=== PATIENT | female | born 1990 | race Caucasian/White ===

== ENCOUNTER 2024-01-24 18:06 | Inpatient (IN) | payer OTHER, SELFPAY ==
[2024-01-24] VITALS (7 sets, daily range): BP systolic 115–128; BP diastolic 71–82; PULSE 61–83; RESP 16–18; TEMP 36.9; O2SAT 96–100; BMI 20.3
--- NOTE | 2024-01-24 21:20 | DI.RAD.S_ITS ---
PROCEDURE: XR CHEST 1V INDICATIONS: suspected sepsis TECHNIQUE: One view of the chest was acquired. COMPARISON: None. FINDINGS: Surgical changes and devices: None. Lungs and pleura: Lungs are clear. No pleural effusions or pneumothorax. Mediastinum: Mediastinal contours appear normal. Heart size is normal. Bones and chest wall: No suspicious bony lesions. Overlying soft tissues appear unremarkable. IMPRESSION: No acute cardiopulmonary abnormality is seen. Dictated by: Noe Hoang M.D. on 01/24/2024 at 23:45 Approved by: Noe Hoang M.D. on 01/24/2024 at 23:45
[2024-01-24] MEDS: SODIUM CHLORIDE 0.9% 1,000 ML 1000 ML IV ×3 (22:00→23:38)
[2024-01-24] MEDS: ACETAMINOPHEN IV 1,000 MG/100 ML VIAL 400 MG IV (22:01)
[2024-01-24] MEDS: ONDANSETRON 4 MG/2 ML INJ IV (22:01)
--- NOTE | 2024-01-24 22:17 | ED.HA ---
HPI - Headache General Chief Complaint: Headache Stated Complaint: Headache, neck px, body px, chills Time Seen by Provider: 01/24/24 21:53 Source: patient, RN notes reviewed and old records reviewed Mode of arrival: Ambulatory Limitations: no limitations History of Present Illness HPI Narrative: This is a 33-year-old female with no reported medical issues with report of 5 days of myalgias particularly back pain, headache. She reports chills. She states no objective fevers when using a thermometer but has felt warm. Patient states no cough cold or congestion symptoms. Denies chest pain or shortness of breath. She had some nausea and vomiting overnight. She had a couple episodes of vomiting on and off. She has had very little intake of food or liquid. She states she has had bowel movements she describes them as formed without any black or blood. States that she does have sensation in the chest and go right before happens. Denies any dysuria urgency or frequency. No vaginal discharge or bleeding. Denies flank pain states it is overall kind of back discomfort. Denies any rash or skin changes overall. States she does have some neck pain with her headache. She was able to do full range of motion. Denies any sore throat. Patient states no rashes, cuts or other changes. She has tried Tylenol and ibuprofen without much improvement. States yesterday she was sort of lost some time in does not recall throwing up. Denies any daily medications. Denies any major surgeries. No known drug allergies. No tobacco, no regular alcohol, no recreational drugs. She is accompanied by her sister. Related Data Allergies Allergy/AdvReac Type Severity Reaction Status Date / Time No Known Drug Allergies Allergy Verified 01/24/24 22:06 Review of Systems Review of Systems ROS Unobtainable: All systems reviewed & are unremarkable except as noted in HPI and below Patient History Social History Smoking Status: Never smoker Smoking Status: Never smoker alcohol intake frequency: holidays/special occasions only Substance Use Type: does not use Exam Narrative Exam Narrative: GEN: well nourished, well appearing female, alert and oriented x 3, patient appears to be in mild distress. HEENT: Atraumatic, pupils are equal round reactive to light, extraocular movements are intact, nares are clear, TMs are clear with no fluid, there is no conjunctival pallor. Throat is clear without any exudates, erythema, tonsillar enlargement or uvular deviation, full range of motion. No meningeal signs, no negative Kernig's and Brudzinski's. HEART: Regular rate and rhythm without murmur, clicks, rubs. pulses are equal in upper and lower extremities LUNGS:Lungs clear to auscultation, no wheezes, rales, crackles, chest moves symmetrically ABD:bowel sounds normal, soft, non-tender, no guarding, rebound, rigidity, no masses noted, no hepatosplenomegaly :No CVA tenderness MSCL: Non-tender, no muscle atrophy, muscles strength 5/5 upper and lower extremities, full range of motion, normal gait NEURO:CN 2-12 intact, sensation normal, reflexes 2/4 upper and lower extremities. SKIN: No rash, erythema, no blisters or vesicles. Patient does have some bruising on her anterior right garcia and left ankle. Initial Vital Signs Initial Vital Signs: Vital Signs Temperature 98.5 F 01/24/24 18:18 Pulse Rate 78 01/24/24 18:18 Respiratory Rate 16 01/24/24 18:18 Blood Pressure 128/77 01/24/24 18:18 Pulse Oximetry 100 01/24/24 18:18 Oxygen Delivery Method Room Air 01/24/24 18:18 Procedures Lumbar Puncture Time of procedure: 02:30 Time Out Performed: Yes Patient Position: upright Skin Prep: Povidone-Iodine 1% Local Anesthetic: lidocaine 2% Amount of anesthesia used (mL): 4 Spinal Needle Gauge: 22G Interspace Used: L3-L4 Fluid Initially Obtained: clear Complications: none Course Orders Ordered: ED Orders 01/24/24 21:20 XR chest 1V Stat RT Consult Eval and Treat NOW 01/24/24 21:25 Respiratory Panel (Film Array) Stat 01/24/24 22:45 Blood Culture Stat Complete Blood Count AUTO DIFF Stat Comprehensive Metabolic Panel Stat Lactate (Lactic Acid) Stat Lipase Stat PTT Partial Thromboplastin [place] Stat Procalcitonin Stat Prothrombin Time INR Stat 01/24/24 23:33 CT head/brain wo con Stat 01/25/24 Basic Metabolic Panel Routine Complete Blood Count AUTO DIFF Routine 01/25/24 02:40 Cell Count w Diff CSF Stat Glucose CSF Stat HOLD TUBE CSF Stat Meningitis Panel (Film Array) Stat Total Protein CSF Stat 01/25/24 03:00 CSF culture Stat 01/25/24 04:42 Education, smoking cessation ONGOING 01/25/24 05:00 Education, smoking cessation ONGOING Acetaminophen (Acetaminophen 325 Mg Tablet) 650 mg PO Q6H PRN PRN Reason: Fever/Mild Pain (1-3) Hydrocodone Bitart/Acetaminophen (Hydrocodone/Acet 5/325 Tablet) 1 tab PO Q4H PRN PRN Reason: Pain, Moderate (4-6) Sodium Chloride (Normal Saline 0.9%) 1,000 mls @ 150 mls/hr IV CONT BRIANDA Last Admin: 01/25/24 03:25 Dose: 150 mls/hr Documented By: GC Sodium Chloride (Normal Saline 0.9%) 1,000 mls @ 75 mls/hr IV CONT BRIANDA Ceftriaxone Sodium 2,000 mg/ (Sodium Chloride) 100 mls @ 200 mls/hr IV Q24H BRIANDA Naloxone HCl (Naloxone 0.4 Mg/Ml Vial) 0.2 mg IV Q2MIN PRN PRN Reason: Opiate Reversal Naloxone HCl (Naloxone 0.4 Mg/Ml Vial) 0.2 mg IV Q2MIN PRN PRN Reason: Opiate Reversal Ondansetron HCl (Ondansetron 4 Mg Odt) 4 mg SL NOW PRN PRN Reason: Nausea And Vomiting Ondansetron HCl (Ondansetron 4 Mg/2 Ml Inj) 4 mg IV Q8HR PRN PRN Reason: Nausea And Vomiting Vancomycin HCl (Vancomycin Per Pharmacy) 1 request MISC NOW PRN PRN Reason: possible menigitis Discontinued Medications Dexamethasone (Dexamethasone 10 Mg/Ml Vial) 10 mg IV NOW ONE Stop: 01/25/24 03:54 Last Admin: 01/25/24 04:55 Dose: 10 mg Documented By: AB Sodium Chloride (Normal Saline 0.9%) 1,000 mls @ 1,000 mls/hr IV BOLUS ONE Stop: 01/24/24 22:18 Last Infusion: 01/24/24 22:41 Dose: Infused Documented By: Admin: 01/24/24 22:00 Dose: 1,000 mls/hr Documented By: AB Acetaminophen (Ofirmev) 1,000 mg in 100 mls @ 400 mls/hr IV NOW ONE Stop: 01/24/24 21:35 Last Infusion: 01/24/24 22:30 Dose: Infused Documented By: Admin: 01/24/24 22:01 Dose: 400 mls/hr Documented By: Sodium Chloride (Normal Sal[place] 0.9%) 1,000 mls @ 1,000 mls/hr IV BOLUS ONE Stop: 01/24/24 23:26 Last Infusion: 01/24/24 23:35 Dose: Infused Documented By: Admin: 01/24/24 22:46 Dose: 1,000 mls/hr Documented By: Sodium Chloride (Normal Saline 0.9%) 1,000 mls @ 1,000 mls/hr IV BOLUS ONE Stop: 01/25/24 00:34 Last Infusion: 01/25/24 00:41 Dose: Infused Documented By: Admin: 01/24/24 23:38 Dose: 1,000 mls/hr Documented By: Acyclovir 520 mg/ Dextrose 250 mls @ 250 mls/hr IV NOW ONE Stop: 01/25/24 02:44 Last Infusion: 01/25/24 04:53 Dose: Infused Documented By: Admin: 01/25/24 03:47 Dose: 250 mls/hr Documented By: JARETH Ceftriaxone Sodium 2,000 mg/ (Sodium Chloride) 100 mls @ 200 mls/hr IV NOW ONE Stop: 01/25/24 03:54 Last Admin: 01/25/24 04:55 Dose: 200 mls/hr Documented By: Vancomycin HCl (Vancomycin) 1,000 mg in 200 mls @ 200 mls/hr IV NOW ONE Stop: 01/25/24 04:52 Ketorolac Tromethamine (Ketorolac 30 Mg/Ml Vial) 15 mg IV NOW ONE Stop: 01/24/24 22:35 Last Admin: 01/24/24 22:45 Dose: 15 mg Documented By: Metoclopramide HCl (Metoclopramide 10 Mg/2 Ml Inj) 10 mg IV NOW ONE Stop: 01/24/24 23:52 Last Admin: 01/25/24 00:07 Dose: 10 mg Documented By: Morphine Sulfate (Morphine 4 Mg/Ml Inj) 4 mg IV NOW ONE Stop: 01/25/24 02:46 Last Admin: 01/25/24 03:26 Dose: 4 mg Documented By: JARETH Ondansetron HCl (Ondansetron 4 Mg/2 Ml Inj) 4 mg IV NOW PRN PRN Reason: Nausea And Vomiting Last Admin: 01/25/24 03:29 Dose: 4 mg Documented By: Admin: 01/24/24 22:01 Dose: 4 mg Documented By: Ondansetron HCl (Ondansetron 4 Mg/2 Ml Inj) 4 mg IV NOW ONE Stop: 01/25/24 03:28 Vital Signs Vital signs: Vital Signs - 8 hr 01/24/24 21:48 01/24/24 21:48 01/24/24 22:00 Pulse Rate 67 65 Respiratory Rate Blood Pressure 121/82 Pulse Oximetry 100 100 Oxygen Delivery Method Room Air 01/24/24 22:00 01/24/24 22:30 01/24/24 23:00 Pulse Rate 71 72 Respiratory Rate Blood Pressure 118/71 Pulse Oximetry 98 Oxygen Delivery Method 01/24/24 23:30 01/25/24 00:03 01/25/24 00:15 Pulse Rate 61 69 73 Respiratory Rate 18 Blood Pressure Pulse Oximetry 99 99 96 Oxygen Delivery Method Room Air 01/25/24 00:15 01/25/24 00:30 01/25/24 00:30 Pulse Rate 64 Respiratory Rate 17 Blood Pressure 121/74 119/75 Pulse Oximetry 99 Oxygen Delivery Method Room Air 01/25/24 01:00 01/25/24 01:00 01/25/24 01:30 Pulse Rate 74 84 Respiratory Rate 36 H 5 L Blood Pressure 110/69 Pulse Oximetry 98 Oxygen Delivery Method 01/25/24 01:30 01/25/24 02:00 01/25/24 02:00 Pulse Rate 64 Respiratory Rate 19 Blood Pressure 118/76 121/75 Pulse Oximetry 97 Oxygen Delivery Method 01/25/24 02:30 01/25/24 02:30 01/25/24 03:00 Pulse Rate 74 70 Respiratory Rate 19 19 Blood Pressure 125/84 Pulse Oximetry 96 99 Oxygen Delivery Method 01/25/24 03:00 01/25/24 03:30 01/25/24 03:30 Pulse Rate 60 Respiratory Rate 14 Blood Pressure 119/67 113/63 Pulse Oximetry 96 Oxygen Delivery Method 01/25/24 04:00 Pulse Rate 84 Respiratory Rate 21 Blood Pressure Pulse Oximetry 97 Oxygen Delivery Method Room Air MDM - Headache Lab Data 01/24/24 22:45 01/24/24 22:45 Labs: Lab Results 01/24/24 01/24/24 01/25/24 Range/Units 21:25 22:45 02:40 WBC 8.0 (4.5-11.0) X10^3/uL RBC 4.26 (4.0-5.2) X10^6/uL Hgb 13.0 (12.0-16.0) g/dL Hct 37.8 (36-46) % MCV 88.7 (80-100) fL MCH 30.5 (26-34) PG MCHC 34.3 (30-36) % RDW 12.4 (11.6-14.8) % Plt Count 260 (150-400) X10^3/uL Neut % (Auto) 74.7 (50-75) % Lymph % (Auto) 14.3 L (25-40) % Teller % (Auto) 9.9 (3-14) % Eos % (Auto) 0.5 L (2-4) % Baso % (Auto) 0.6 (0-2) % Neut # (Auto) 6000 (1706-0885) /uL Lymph # (Auto) 1200 (9847-9115) /uL Teller # (Auto) 800 (0-900) /uL Eos # (Auto) 0 (0-450) /uL Baso # (Auto) 100 (0-100) /uL PT 13.0 H (9.4-12.5) SECONDS INR 1.1 (0.9-1.3) APTT 33 (25.1-36.5) SECONDS Sodium 137 (137-145) mmol/L Potassium 3.5 (3.4-5.1) mmol/L Chloride 106 (98-107) mmol/L Carbon Dioxide 21 L (22-32) mmol/L BUN 16 (7-17) mg/dL Creatinine 0.56 (0.52-1.04) mg/dL Estimated GFR > 60 (>60) mL/min BUN/Creatinine Ratio 28.6 H (6-22) Glucose 88 (70-100) mg/dL Lactate 1.2 (0.7-2.1) mmol/L Calcium 8.6 (8.4-10.2) mg/dL Total Bilirubin 0.8 (0.2-1.3) mg/dL AST 23 (14-36) IU/L ALT 17 (<35) IU/L Alkaline Phosphatase 58 (38-126) U/L Total Protein 7.0 (6.3-8.2) g/dL Albumin 4.2 (3.5-5.0) g/dL Globulin 2.8 (1.7-4.1) g/dL Albumin/Globulin Ratio 1.5 (1.0-2.8) Lipase 60 (23-300) U/L Procalcitonin 0.088 (<0.5) ng/mL CSF Tube Number 1 CSF Volume 3.0 ml CSF Appearance Clear (Clear) CSF Color Colorless (Colorless) CSF WBC 393 H (0-5) MONO/uL CSF RBC 269 RBC /uL CSF Mononuclear WBCs 100 % CSF Polynuclear WBCs 0 % CSF Glucose 40 (40-70) mg/dL CSF Total Protein 153 H (12-60) mg/dL CSF C.neoform/gat PCR Not detected (Not Detect) CSF CMV DNA (PCR) Not detected (Not Detect) CSF Enterovirus (PCR) Not detected (Not Detect) CSF E. coli (PCR) Not detected (Not Detect) CSF H. influenzae (PCR) Not detected (Not Detect) CSF HSV I (PCR) Not detected (Not Detect) CSF HSV II (PCR) Not detected (Not Detect) CSF HHV 6 (PCR) Not detected (Not Detect) CSF L.monocytogenes PCR Not detected (Not Detect) CSF N. meningitidis PCR Not detected (Not Detect) CSF Parechovirus (PCR) Not detected (Not Detect) CSF S. agalactiae (PCR) Not detected (Not Detect) CSF S. pneumoniae (PCR) Not detected (Not Detect) CSF VZV (PCR) Detected (Not Detecte) Chlamy pneumoniae PCR Not detected (Not Detect) Adenovirus (PCR) Not detected (Not Detect) B.parapertussis DNA PCR Not detected (Not Detecte) Coronavirus OC43 (PCR) Not detected (Not Detect) Coronavirus HKU1 (PCR) Not detected (Not Detect) Coronavirus 229E (PCR) Not detected (Not Detect) SARS-CoV-2 (PCR) Not detected (Not Detecte) Coronavirus NL63 (PCR) Not detected (Not Detect) Human Metapneumovir PCR Not detected (Not Detect) Influenza Type A (PCR) Not detected (Not Detect) Influenza Type B (PCR) Not detected (Not Detect) M. pneumoniae (PCR) Not detected (Not Detect) Parainfluenza 1 (PCR) Not detected (Not Detect) Parainfluenza 2 (PCR) Not detected (Not Detect) Parainfluenza 3 (PCR) Not detected (Not Detect) Parainfluenza 4 (PCR) Not detected (Not Detect) RSV (PCR) Not detected (Not Detect) Entero/Rhino (PCR) Not detected (Not Detect) Point of Care Testing Test Results Negative Urine Dip Bedside Urine Glucose Negative Bedside Urine Bilirubin - Negative Bedside Urine Ketone +++ 80 Urine Specific [place] 1.025 Bedside Urine Occult Blood - Negative Bedside Urine pH 6.0 Bedside Urine Protein - Negative Bedside Urine Urobilinogen - Negative Bedside Urine Nitrite - Negative Bedside Urine Leukocytes - Negative Esterase Imaging Data CT scan - head: Radiologist's Impression: Love Escalante??33??F??1990 ? Allergy/Adv: No Known Drug Allergies (More??) Close Head CT (Signed) Call,Noe - 01/24/24 Chest X-Ray (Signed) Call,01/24/24 [place] [address] CT Scan Report Signed Patient: Love Escalante MR#: [id number] : 1990 Acct:[id number] Age/Sex: 33 / F Date of Service: 01/24/24 Loc: ED Accession Number: [id number] Procedure: CT head/brain wo con Ordering Provider: Joann Lim D.O. PROCEDURE: CT HEAD/BRAIN WO CON INDICATIONS: chills, perry x 5 days, vomiting, confused yesterday. TECHNIQUE: Noncontrast 4.5 mm thick angled axial sections acquired from the foramen magnum to the vertex, with coronal and sagittal reformats. For radiation dose reduction, the following was used: automated exposure control, adjustment of mA and/or kV according to patient size. COMPARISON: None. FINDINGS: Image quality: Diagnostic. CSF spaces: Basal cisterns are patent. No extra-axial fluid collections. Ventricles are normal in size and shape. Brain: No midline shift. No intracranial masses or hemorrhage. Lemons-white matter interface is normal. Skull and face: Calvarium and visualized facial bones are intact, without suspicious lesions. Sinuses: Visualized sinuses and mastoids are clear. IMPRESSION: No acute intracranial pathology. Dictated by: Noe Hoang M.D. on 01/25/2024 at 0:53 Approved by: Noe Hoang M.D. on 01/25/2024 at 0:55 MDM Narrative Medical decision making narrative: 33-year-old female complaint of headache and neck pain generalized body aches. Patient is afebrile overall appropriate vital signs here. No clear viral upper respiratory symptoms. Has not some nausea and vomiting. No chest pain no shortness of breath no belly pain. Patient's exam is overall reassuring but she does note a little bit of loss of time in the last 24 hours and did not recall throwing up. Patient was difficult IV stick. Received fluids see if this would make this a little bit easier. I think there is a component of dehydration for the patient. Head CT is negative Chest x-ray is negative Respiratory panel is negative Labs show white count 8 hemoglobin of 13 platelets of 260. INR is 1 point CO2 is 21 electrolytes are otherwise appropriate creatinine 0.56, lactate 1.2 glucose is 88, LFTs are negative. Procalcitonin is negative at 0.088. Discussed possibility of meningitis and lumbar puncture, suspect potentially more viral over bacterial although her exam is overall reassuring she has had 5 days of symptoms, patient does not have any meningeal signs on exam but does note that she had loss of some time in the last 24 hours and does not recall vomiting. Discussed risks versus benefits with patient. Patient received Tylenol, Toradol and fluids. Notes improvement of her headache although not resolution. Patient's vitals overall continued to be appropriate. Patient appears uncomfortable on rechecked. States medication seemed to be wearing off. Patient gave verbal and written consent for lumbar puncture. Lumbar puncture was successful. Patient had clear fluid. Did not obtain pressure but had steady but slow drainage of CSF fluid. Acyclovir was started. Patient had quite a few white cells on CSF so was also started on Rocephin vanco and dexamethasone. Spoke with Dr. Herrera, telehospitalist who accepts for admission. Discharge Plan Departure Patient Disposition: Admitted As Inpatient Clinical Impression: Meningitis
[2024-01-24] MEDS: KETOROLAC 30 MG/ML VIAL 15 MG IV (22:45)
[2024-01-24 22:52] LABS: Adenovirus Not Detected (Not Detect); B. parapertussis Not Detected (Not Detecte); Bordetella pertussis Not Detected (Not Detect); Chlamydophila pneumoniae Not Detected (Not Detect); Coronavirus 229E Not Detected (Not Detect); Coronavirus HKU1 Not Detected (Not Detect); Coronavirus NL 63 Not Detected (Not Detect); Coronavirus OC43 Not Detected (Not Detect); Human Metapneumovirus Not Detected (Not Detect); Human Rhinovirus/Enterovirus Not Detected (Not Detect); Influenza A Not Detected (Not Detect); Influenza B Not Detected (Not Detect); Mycoplasma pneumoniae Not Detected (Not Detect); Parainfluenza Virus 1 Not Detected (Not Detect); Parainfluenza Virus 2 Not Detected (Not Detect); Parainfluenza Virus 3 Not Detected (Not Detect); Parainfluenza Virus 4 Not Detected (Not Detect); Respiratory Syncytial Virus Not Detected (Not Detect); SARS- CoV-2 Not Detected (Not Detecte)
[2024-01-24 23:02] LABS: Add Manual Diff / Slide Review NO; Basophils Absolute Auto 100 /uL (0-100); Basophils Percent Auto 0.6 % (0-2); Eosinophils Absolute Auto 0 /uL (0-450); Eosinophils Percent Auto 0.5 % (2-4); Hematocrit 37.8 % (36-46); Lymphocytes Absolute Auto 1200 /uL (1100-4500); Lymphocytes Percent Auto 14.3 % (25-40); Mean Corpuscular HGB Conc 34.3 % (30-36); Mean Corpuscular Hemoglobin 30.5 PG (26-34); Mean Corpuscular Volume 88.7 fL (80-100); Monocytes Absolute Auto 800 /uL (0-900); Monocytes Percent Auto 9.9 % (3-14); Neutrophils Absolute Auto 6000 /uL (1500-7000); Neutrophils Percent Auto 74.7 % (50-75); Platelet Count 260 X10^3/uL (150-400); Red Blood Cell Count 4.26 X10^6/uL (4.0-5.2); Red Cell Distribution Width 12.4 % (11.6-14.8)
[2024-01-24 23:10] LABS: INR 1.1 (0.9-1.3)
[2024-01-24 23:13] LABS: PTT Partial Thromboplastin Tim 33 SECONDS (25.1-36.5)
[2024-01-24 23:14] LABS: Lactate (Lactic Acid) 1.2 mmol/L (0.7-2.1)
[2024-01-24 23:15] LABS: Alanine Aminotransferase 17 IU/L (<35); Albumin 4.2 g/dL (3.5-5.0); Albumin Globulin Ratio 1.5 (1.0-2.8); Alkaline Phosphatase 58 U/L (38-126); Aspartate Aminotransferase 23 IU/L (14-36); BUN Creatinine Ratio 28.6 (6-22); Bilirubin Total 0.8 mg/dL (0.2-1.3); Blood Urea Nitrogen 16 mg/dL (7-17); Calcium 8.6 mg/dL (8.4-10.2); Carbon Dioxide 21 mmol/L (22-32); Chloride 106 mmol/L (98-107); Estimated Glomerular Filt Rate > 60 mL/min (>60); Globulin 2.8 g/dL (1.7-4.1); Glucose 88 mg/dL (70-100); HEMOLYSIS < 15 (0-50); Lipase 60 U/L (23-300); Potassium 3.5 mmol/L (3.4-5.1); Sodium 137 mmol/L (137-145)
[2024-01-24 23:32] LABS: Procalcitonin 0.088 ng/mL (<0.5)
--- NOTE | 2024-01-24 23:33 | DI.CT.S_ITS ---
PROCEDURE: CT HEAD/BRAIN WO CON INDICATIONS: chills, perry x 5 days, vomiting, confused yesterday. TECHNIQUE: Noncontrast 4.5 mm thick angled axial sections acquired from the foramen magnum to the vertex, with coronal and sagittal reformats. For radiation dose reduction, the following was used: automated exposure control, adjustment of mA and/or kV according to patient size. COMPARISON: None. FINDINGS: Image quality: Diagnostic. CSF spaces: Basal cisterns are patent. No extra-axial fluid collections. Ventricles are normal in size and shape. Brain: No midline shift. No intracranial masses or hemorrhage. Lemons-white matter interface is normal. Skull and face: Calvarium and visualized facial bones are intact, without suspicious lesions. Sinuses: Visualized sinuses and mastoids are clear. IMPRESSION: No acute intracranial pathology. Dictated by: Noe Hoang M.D. on 01/25/2024 at 0:53 Approved by: Noe Hoang M.D. on 01/25/2024 at 0:55
[2024-01-25] VITALS (16 sets, daily range): BP systolic 102–125; BP diastolic 63–84; PULSE 56–84; RESP 5–36; TEMP 37.2; O2SAT 96–100; BMI 22.3
[2024-01-25] MEDS: METOCLOPRAMIDE 10 MG/2 ML INJ IV (00:07)
--- NOTE | 2024-01-25 01:08 | PC.NURSE ---
Pt appears to be resting comfortably. Chest rising and falling.
[2024-01-25] MEDS: SODIUM CHLORIDE 0.9% 1,000 ML 150 ML IV (03:25)
[2024-01-25] MEDS: MORPHINE 4 MG/ML INJ IV (03:26)
[2024-01-25] MEDS: ONDANSETRON 4 MG/2 ML INJ IV ×2 (03:29→16:25)
[2024-01-25 03:34] LABS: Appearance CSF Clear (Clear); CSF Tube Number 1; CSF Tube Volume 3.0 mL; Color CSF Colorless (Colorless)
[2024-01-25 03:35] LABS: HOLD TUBE CSF 4; Red Blood Cell CSF 269 RBC /uL; White Blood Cell CSF 393 MONO/uL (0-5)
[2024-01-25] MEDS: DEXTROSE 5% IV ×3 (03:47→15:22)
[2024-01-25] MEDS: WATER IV ×3 (03:47→15:22)
[2024-01-25] MEDS: ACYCLOVIR IV ×3 (03:47→15:22)
[2024-01-25 03:56] LABS: Glucose CSF 40 mg/dL (40-70); Total Protein CSF 153 mg/dL (12-60)
[2024-01-25 04:15] LABS: Cryptococcus neoformans/gattii Not Detected (Not Detect); Enterovirus Not Detected (Not Detect); Escherichia coli K1 Not Detected (Not Detect); Haemophilus influenzae Not Detected (Not Detect); Herpes simplex virus 1 Not Detected (Not Detect); Herpes simplex virus 2 Not Detected (Not Detect); Human herpesvirus 6 Not Detected (Not Detect); Human parechovirus Not Detected (Not Detect); Listeria monocytogenes Not Detected (Not Detect); Neisseria meningitidis Not Detected (Not Detect); Streptococcus agalactiae Not Detected (Not Detect); Streptococcus pneumoniae Not Detected (Not Detect); Varicella Zoster Virus Detected (Not Detecte)
[2024-01-25 04:37] LABS: Mononuclear WBC CSF 100 %; Polynuclear WBC CSF 0 %
[2024-01-25] MEDS: cefTRIAXone 2,000 MG in SODIUM CHLORIDE 0.9% 100 ML 200 MG IV ×2 (04:55→17:00)
[2024-01-25] MEDS: DEXAMETHASONE 10 MG/ML VIAL IV (04:55)
--- NOTE | 2024-01-25 05:08 | ED_ITS ---
HPI - Headache General Chief Complaint: Headache Stated Complaint: Headache, neck px, body px, chills Time Seen by Provider: 01/24/24 21:53 Mode of arrival: Ambulatory Limitations: no limitations History of Present Illness HPI Narrative: 33 year old female with no reported past medical history presents with generalized body aches and headache. Per the patient's report, over the past 5 days, the patient started to have generalized bodyaches accompanied by a moderate to severe headache. The patient started to have subjective fever and chills yesterday along with some nausea and vomiting. The patient denies any focal weakness or vision changes. The patient also denies any chest pain, shortness of breath, diarrhea or syncope. The patient tried to take some tylenol and ibuprofen at home whithout much imrpovement. In our ER, the patient was hemodyniacamlly stable without sign of sepsis. However due to ongoing headeache, our ER physician was concern for meningitis. Lumbar puncture was done and CSF fluid shows increased WBC and protein. Patient was given IVF, IV Vancomycin, IV Ceftriaxone and IV acyclovir. CSF fluid also sent for cultures. Related Data Allergies Allergy/AdvReac Type Severity Reaction Status Date / Time No Known Drug Allergies Allergy Verified 01/24/24 22:06 Review of Systems Review of Systems Narrative: 12 points of ROS are negative except for what was mentioned per HPI. Patient History Social History Smoking Status: Never smoker Smoking Status: Never smoker alcohol intake frequency: holidays/special occasions only Substance Use Type: does not use Exam Narrative Exam Narrative: GENERAL: The patient is not in any acute distressed. Awake and alert. HEENT: Nonicteric sclerae, PERRLA, EOMI. Oropharynx clear. Moist mucous membranes. Conjunctivae appear well perfused. HEART: Regular rate and rhythm without murmurs. No lower extremities edema. LUNGS: Clear to auscultation bilaterally. No wheezing, crackles or rhonchi ABDOMEN: Soft, positive bowel sounds, nontender. SKIN: No rash, no excessive bruising, petechiae, or purpura. NEUROLOGIC: AxO x 3. Cranial nerves II-XII intact without motor/sensory deficit. Initial Vital Signs Initial Vital Signs: Vital Signs Temperature 98.5 F 01/24/24 18:18 Pulse Rate 78 01/24/24 18:18 Respiratory Rate 16 01/24/24 18:18 Blood Pressure 128/77 01/24/24 18:18 Pulse Oximetry 100 01/24/24 18:18 Oxygen Delivery Method Room Air 01/24/24 18:18 Course Orders Ordered: ED Orders 01/24/24 21:20 XR chest 1V Stat RT Consult Eval and Treat NOW 01/24/24 21:25 Respiratory Panel (Film Array) Stat 01/24/24 22:45 Blood Culture Stat Complete Blood Count AUTO DIFF Stat Comprehensive Metabolic Panel Stat Lactate (Lactic Acid) Stat Lipase Stat PTT Partial Thromboplastin [place] Stat Procalcitonin Stat Prothrombin Time INR Stat 01/24/24 23:33 CT head/brain wo con Stat 01/25/24 Basic Metabolic Panel Routine Complete Blood Count AUTO DIFF Routine 01/25/24 02:40 Cell Count w Diff CSF Stat Glucose CSF Stat HOLD TUBE CSF Stat Meningitis Panel (Film Array) Stat Total Protein CSF Stat 01/25/24 03:00 CSF culture Stat 01/25/24 04:42 Education, smoking cessation ONGOING 01/25/24 05:00 Education, smoking cessation ONGOING Acetaminophen (Acetaminophen 325 Mg Tablet) 650 mg PO Q6H PRN PRN Reason: Fever/Mild Pain (1-3) Hydrocodone Bitart/Acetaminophen (Hydrocodone/Acet 5/325 Tablet) 1 tab PO Q4H PRN PRN Reason: Pain, Moderate (4-6) Sodium Chloride (Normal Saline 0.9%) 1,000 mls @ 150 mls/hr IV CONT BRIANDA Last Admin: 01/25/24 03:25 Dose: 150 mls/hr Documented By: GC Sodium Chloride (Normal Saline 0.9%) 1,000 mls @ 75 mls/hr IV CONT BRIANDA Ceftriaxone Sodium 2,000 mg/ (Sodium Chloride) 100 mls @ 200 mls/hr IV Q24H [facility] Naloxone HCl (Naloxone 0.4 Mg/Ml Vial) 0.2 mg IV Q2MIN PRN PRN Reason: Opiate Reversal Naloxone HCl (Naloxone 0.4 Mg/Ml Vial) 0.2 mg IV Q2MIN PRN PRN Reason: Opiate Reversal Ondansetron HCl (Ondansetron 4 Mg Odt) 4 mg SL NOW PRN PRN Reason: Nausea And Vomiting Ondansetron HCl (Ondansetron 4 Mg/2 Ml Inj) 4 mg IV Q8HR PRN PRN Reason: Nausea And Vomiting Vancomycin HCl (Vancomycin Per Pharmacy) 1 request MISC NOW PRN PRN Reason: possible menigitis Discontinued Medications Dexamethasone (Dexamethasone 10 Mg/Ml Vial) 10 mg IV NOW ONE Stop: 01/25/24 03:54 Last Admin: 01/25/24 04:55 Dose: 10 mg Documented By: Sodium Chloride (Normal Saline 0.9%) 1,000 mls @ 1,000 mls/hr IV BOLUS ONE Stop: 01/24/24 22:18 Last Infusion: 01/24/24 22:41 Dose: Infused Documented By: Admin: 01/24/24 22:00 Dose: 1,000 mls/hr Documented By: AB Acetaminophen (Ofirmev) 1,000 mg in 100 mls @ 400 mls/hr IV NOW ONE Stop: 01/24/24 21:35 Last Infusion: 01/24/24 22:30 Dose: Infused Documented By: Admin: 01/24/24 22:01 Dose: 400 mls/hr Documented By: Sodium Chloride (Normal Saline 0.9%) 1,000 mls @ 1,000 mls/hr IV BOLUS ONE Stop: 01/24/24 23:26 Last Infusion: 01/24/24 23:35 Dose: Infused Documented By: Admin: 01/24/24 22:46 Dose: 1,000 mls/hr Documented By: Sodium Chloride (Normal Saline 0.9%) 1,000 mls @ 1,000 mls/hr IV BOLUS ONE Stop: 01/25/24 00:34 Last Infusion: 01/25/24 00:41 Dose: Infused Documented By: Admin: 01/24/24 23:38 Dose: 1,000 mls/hr Documented By: AB Acyclovir 520 mg/ Dextrose 250 mls @ 250 mls/hr IV NOW ONE Stop: 01/25/24 02:44 Last Infusion: 01/25/24 04:53 Dose: Infused Documented By: Admin: 01/25/24 03:47 Dose: 250 mls/hr Documented By: JARETH Ceftriaxone Sodium 2,000 mg/ (Sodium Chloride) 100 mls @ 200 mls/hr IV NOW ONE Stop: 01/25/24 03:54 Last Admin: 01/25/24 04:55 Dose: 200 mls/hr Documented By: Vancomycin HCl (Vancomycin) 1,000 mg in 200 mls @ 200 mls/hr IV NOW ONE Stop: 01/25/24 04:52 Ketorolac Tromethamine (Ketorolac 30 Mg/Ml Vial) 15 mg IV NOW ONE Stop: 01/24/24 22:35 Last Admin: 01/24/24 22:45 Dose: 15 mg Documented By: Metoclopramide HCl (Metoclopramide 10 Mg/2 Ml Inj) 10 mg IV NOW ONE Stop: 01/24/24 23:52 Last Admin: 01/25/24 00:07 Dose: 10 mg Documented By: Morphine Sulfate (Morphine 4 Mg/Ml Inj) 4 mg IV NOW ONE Stop: 01/25/24 02:46 Last Admin: 01/25/24 03:26 Dose: 4 mg Documented By: JARETH Ondansetron HCl (Ondansetron 4 Mg/2 Ml Inj) 4 mg IV NOW PRN PRN Reason: Nausea And Vomiting Last Admin: 01/25/24 03:29 Dose: 4 mg Documented By: Admin: 01/24/24 22:01 Dose: 4 mg Documented By: Ondansetron HCl (Ondansetron 4 Mg/2 Ml Inj) 4 mg IV NOW ONE Stop: 01/25/24 03:28 Vital Signs Vital signs: Vital Signs - 8 hr 01/24/24 21:48 01/24/24 21:48 01/24/24 22:00 Pulse Rate 67 65 Respiratory Rate Blood Pressure 121/82 Pulse Oximetry 100 100 Oxygen Delivery Method Room Air 01/24/24 22:00 01/24/24 22:30 01/24/24 23:00 Pulse Rate 71 72 Respiratory Rate Blood Pressure 118/71 Pulse Oximetry 98 Oxygen Delivery Method 01/24/24 23:30 01/25/24 00:03 01/25/24 00:15 Pulse Rate 61 69 73 Respiratory Rate 18 Blood Pressure Pulse Oximetry 99 99 96 Oxygen Delivery Method Room Air 01/25/24 00:15 01/25/24 00:30 01/25/24 00:30 Pulse Rate 64 Respiratory Rate 17 Blood Pressure 121/74 119/75 Pulse Oximetry 99 Oxygen Delivery Method Room Air 01/25/24 01:00 01/25/24 01:00 01/25/24 01:30 Pulse Rate 74 84 Respiratory Rate 36 H 5 L Blood Pressure 110/69 Pulse Oximetry 98 Oxygen Delivery Method 01/25/24 01:30 01/25/24 02:00 01/25/24 02:00 Pulse Rate 64 Respiratory Rate 19 Blood Pressure 118/76 121/75 Pulse Oximetry 97 Oxygen Delivery Method 01/25/24 02:30 01/25/24 02:30 01/25/24 03:00 Pulse Rate 74 70 Respiratory Rate 19 19 Blood Pressure 125/84 Pulse Oximetry 96 99 Oxygen Delivery Method 01/25/24 03:00 01/25/24 03:30 01/25/24 03:30 Pulse Rate 60 Respiratory Rate 14 Blood Pressure 119/67 113/63 Pulse Oximetry 96 Oxygen Delivery Method 01/25/24 04:00 Pulse Rate 84 Respiratory Rate 21 Blood Pressure Pulse Oximetry 97 Oxygen Delivery Method Room Air MDM - Headache Lab Data 01/24/24 22:45 01/24/24 22:45 Labs: Lab Results 01/24/24 01/24/24 01/25/24 Range/Units 21:25 22:45 02:40 WBC 8.0 (4.5-11.0) X10^3/uL RBC 4.26 (4.0-5.2) X10^6/uL Hgb 13.0 (12.0-16.0) g/dL Hct 37.8 (36-46) % MCV 88.7 (80-100) fL MCH 30.5 (26-34) PG MCHC 34.3 (30-36) % RDW 12.4 (11.6-14.8) % Plt Count 260 (150-400) X10^3/uL Neut % (Auto) 74.7 (50-75) % Lymph % (Auto) 14.3 L (25-40) % [place] % (Auto) 9.9 (3-14) % Eos % (Auto) 0.5 L (2-4) % Baso % (Auto) 0.6 (0-2) % Neut # (Auto) 6000 (4845-9201) /uL Lymph # (Auto) 1200 (9557-3369) /uL [place] # (Auto) 800 (0-900) /uL Eos # (Auto) 0 (0-450) /uL Baso # (Auto) 100 (0-100) /uL PT 13.0 H (9.4-12.5) SECONDS INR 1.1 (0.9-1.3) APTT 33 (25.1-36.5) SECONDS Sodium 137 (137-145) mmol/L Potassium 3.5 (3.4-5.1) mmol/L Chloride 106 (98-107) mmol/L Carbon Dioxide 21 L (22-32) mmol/L BUN 16 (7-17) mg/dL Creatinine 0.56 (0.52-1.04) mg/dL Estimated GFR > 60 (>60) mL/min BUN/Creatinine Ratio 28.6 H (6-22) Glucose 88 (70-100) mg/dL Lactate 1.2 (0.7-2.1) mmol/L Calcium 8.6 (8.4-10.2) mg/dL Total Bilirubin 0.8 (0.2-1.3) mg/dL AST 23 (14-36) IU/L ALT 17 (<35) IU/L Alkaline Phosphatase 58 (38-126) U/L Total Protein 7.0 (6.3-8.2) g/dL Albumin 4.2 (3.5-5.0) g/dL Globulin 2.8 (1.7-4.1) g/dL Albumin/Globulin Ratio 1.5 (1.0-2.8) Lipase 60 (23-300) U/L Procalcitonin 0.088 (<0.5) ng/mL CSF Tube Number 1 CSF Volume 3.0 ml CSF Appearance Clear (Clear) CSF Color Colorless (Colorless) CSF WBC 393 H (0-5) MONO/uL CSF RBC 269 RBC /uL CSF Mononuclear WBCs 100 % CSF Polynuclear WBCs 0 % CSF Glucose 40 (40-70) mg/dL CSF Total Protein 153 H (12-60) mg/dL CSF C.neoform/gat PCR Not detected (Not Detect) CSF CMV DNA (PCR) Not detected (Not Detect) CSF Enterovirus (PCR) Not detected (Not Detect) CSF E. coli (PCR) Not detected (Not Detect) CSF H. influenzae (PCR) Not detected (Not Detect) CSF HSV I (PCR) Not detected (Not Detect) CSF HSV II (PCR) Not detected (Not Detect) CSF HHV 6 (PCR) Not detected (Not Detect) CSF L.monocytogenes PCR Not detected (Not Detect) CSF N. meningitidis PCR Not detected (Not Detect) CSF Parechovirus (PCR) Not detected (Not Detect) CSF S. agalactiae (PCR) Not detected (Not Detect) CSF S. pneumoniae (PCR) Not detected (Not Detect) CSF VZV (PCR) Detected (Not Detecte) Chlamy pneumoniae PCR Not detected (Not Detect) Adenovirus (PCR) Not detected (Not Detect) B.parapertussis DNA PCR Not detected (Not Detecte) Coronavirus OC43 (PCR) Not detected (Not Detect) Coronavirus HKU1 (PCR) Not detected (Not Detect) Coronavirus 229E (PCR) Not detected (Not Detect) SARS-CoV-2 (PCR) Not detected (Not Detecte) Coronavirus NL63 (PCR) Not detected (Not Detect) Human Metapneumovir PCR Not detected (Not Detect) Influenza Type A (PCR) Not detected (Not Detect) Influenza Type B (PCR) Not detected (Not Detect) M. pneumoniae (PCR) Not detected (Not Detect) Parainfluenza 1 (PCR) Not detected (Not Detect) Parainfluenza 2 (PCR) Not detected (Not Detect) Parainfluenza 3 (PCR) Not detected (Not Detect) Parainfluenza 4 (PCR) Not detected (Not Detect) RSV (PCR) Not detected (Not Detect) Entero/Rhino (PCR) Not detected (Not Detect) Point of Care Testing Test Results Negative Urine Dip Bedside Urine Glucose Negative Bedside Urine Bilirubin - Negative Bedside Urine Ketone +++ 80 Urine Specific [place] 1.025 Bedside Urine Occult Blood - Negative Bedside Urine pH 6.0 Bedside Urine Protein - Negative Bedside Urine Urobilinogen - Negative Bedside Urine Nitrite - Negative Bedside Urine Leukocytes - Negative Esterase Discharge Plan Departure Patient Disposition: Admitted As Inpatient Clinical Impression: Meningitis
[2024-01-25] MEDS: HYDROCODONE/ACET 5/325 TABLET 1 TAB PO ×4 (05:11→22:11)
--- NOTE | 2024-01-25 05:39 | PM.HP.1 ---
History of Present Illness History of Present Illness Chief complaint: Headache, neck px, body px, chills Narrative: 33 year old female with no reported past medical history presents with complaints of generalized body aches and headache. Per the patient's report, over the past 5 days, the patient started to have increasing generalized bodyaches and a moderate to severe headache. Yesterday, the patient also developed subjective fever and chills as well as nausea and vomiting. The patient was unable to hold much down orally due to the nausea and vomiting. The patient otherwise denies any focal weakness or vision changes. The patient also denies any chest pain, coughing, shortness of breath, diarrhea or syncope. In our ER, the patient was hypodermically stable and without sign of sepsis. Due to ongoing headache with negative CT head, our ER physician did do a lumbar puncture and CSF fluid shows elevated WBC as well as protein. Empiric IV Acyclovir, Vancomycin and Ceftriaxone given along with IVF. CSF fluid was also sent for cutltures. [facility] Social History Smoking Status: Never smoker Meds Home Medications and Allergies Allergies Allergy/AdvReac Type Severity Reaction Status Date / Time No Known Drug Allergies Allergy Verified 01/24/24 22:06 Review of Systems Review of Systems Narrative: 12 points of ROS are negative except for what was mentioned per HPI. Exam Vital Signs (past 8 hours): - 01/24/24 21:48 01/24/24 21:48 01/24/24 22:00 Pulse Rate 67 65 Respiratory Rate Blood Pressure 121/82 Pulse Oximetry 100 100 Oxygen Delivery Method Room Air 01/24/24 22:00 01/24/24 22:30 01/24/24 23:00 Pulse Rate 71 72 Respiratory Rate Blood Pressure 118/71 Pulse Oximetry 98 Oxygen Delivery Method 01/24/24 23:30 01/25/24 00:03 01/25/24 00:15 Pulse Rate 61 69 73 Respiratory Rate 18 Blood Pressure Pulse Oximetry 99 99 96 Oxygen Delivery Method Room Air 01/25/24 00:15 01/25/24 00:30 01/25/24 00:30 Pulse Rate 64 Respiratory Rate 17 Blood Pressure 121/74 119/75 Pulse Oximetry 99 Oxygen Delivery Method Room Air 01/25/24 01:00 01/25/24 01:00 01/25/24 01:30 Pulse Rate 74 84 Respiratory Rate 36 H 5 L Blood Pressure 110/69 Pulse Oximetry 98 Oxygen Delivery Method 01/25/24 01:30 01/25/24 02:00 01/25/24 02:00 Pulse Rate 64 Respiratory Rate 19 Blood Pressure 118/76 121/75 Pulse Oximetry 97 Oxygen Delivery Method 01/25/24 02:30 01/25/24 02:30 01/25/24 03:00 Pulse Rate 74 70 Respiratory Rate 19 19 Blood Pressure 125/84 Pulse Oximetry 96 99 Oxygen Delivery Method 01/25/24 03:00 01/25/24 03:30 01/25/24 03:30 Pulse Rate 60 Respiratory Rate 14 Blood Pressure 119/67 113/63 Pulse Oximetry 96 Oxygen Delivery Method 01/25/24 04:00 01/25/24 04:00 01/25/24 04:30 Pulse Rate 84 73 Respiratory Rate 21 18 Blood Pressure 113/64 Pulse Oximetry 97 100 Oxygen Delivery Method Room Air 01/25/24 04:30 01/25/24 05:00 01/25/24 05:00 Pulse Rate 73 Respiratory Rate 19 Blood Pressure 115/71 114/71 Pulse Oximetry 99 Oxygen Delivery Method Room Air Oxygen Delivery Method Room Air Narrative Exam Narrative: GENERAL: The patient is not in any acute distressed. Awake and alert. HEENT: Nonicteric sclerae, PERRLA, EOMI. Oropharynx clear. Moist mucous membranes. Conjunctivae appear well perfused. HEART: Regular rate and rhythm without murmurs. No lower extremities edema. LUNGS: Clear to auscultation bilaterally. No wheezing, crackles or rhonchi ABDOMEN: Soft, positive bowel sounds, nontender. SKIN: No rash, no excessive bruising, petechiae, or purpura. NEUROLOGIC: AxO x 3. Cranial nerves II-XII intact without motor/sensory deficit. Objective Labs 01/24/24 22:45 01/24/24 22:45 Labs: Laboratory Results - last 24 hr 01/24/24 01/24/24 01/25/24 21:25 22:45 02:40 WBC 8.0 RBC 4.26 Hgb 13.0 Hct 37.8 MCV 88.7 MCH 30.5 MCHC 34.3 RDW 12.4 Plt Count 260 Neut % (Auto) 74.7 Lymph % (Auto) 14.3 L [place] % (Auto) 9.9 Eos % (Auto) 0.5 L Baso % (Auto) 0.6 Neut # (Auto) 6000 Lymph # (Auto) 1200 [place] # (Auto) 800 Eos # (Auto) 0 Baso # (Auto) 100 PT 13.0 H INR 1.1 APTT 33 Sodium 137 Potassium 3.5 Chloride 106 Carbon Dioxide 21 L BUN 16 Creatinine 0.56 Estimated GFR > 60 BUN/Creatinine Ratio 28.6 H Glucose 88 Lactate 1.2 Calcium 8.6 Total Bilirubin 0.8 AST 23 ALT 17 Alkaline Phosphatase 58 Total Protein 7.0 Albumin 4.2 Globulin 2.8 Albumin/Globulin Ratio 1.5 Lipase 60 Procalcitonin 0.088 CSF Tube Number 1 CSF Volume 3.0 ml CSF Appearance Clear CSF Color Colorless CSF WBC 393 H CSF RBC 269 CSF Mononuclear WBCs 100 CSF Polynuclear WBCs 0 CSF Glucose 40 CSF Total Protein 153 H CSF C.neoform/gat PCR Not detected CSF CMV DNA (PCR) Not detected CSF Enterovirus (PCR) Not detected CSF E. coli (PCR) Not detected CSF H. influenzae (PCR) Not detected CSF HSV I (PCR) Not detected CSF HSV II (PCR) Not detected CSF HHV 6 (PCR) Not detected CSF L.monocytogenes PCR Not detected CSF N. meningitidis PCR Not detected CSF Parechovirus (PCR) Not detected CSF S. agalactiae (PCR) Not detected CSF S. pneumoniae (PCR) Not detected CSF VZV (PCR) Detected Chlamy pneumoniae PCR Not detected Adenovirus (PCR) Not detected B.parapertussis DNA PCR Not detected Coronavirus OC43 (PCR) Not detected Coronavirus HKU1 (PCR) Not detected Coronavirus 229E (PCR) Not detected SARS-CoV-2 (PCR) Not detected Coronavirus NL63 (PCR) Not detected Human Metapneumovir PCR Not detected Influenza Type A (PCR) Not detected Influenza Type B (PCR) Not detected M. pneumoniae (PCR) Not detected Parainfluenza 1 (PCR) Not detected Parainfluenza 2 (PCR) Not detected Parainfluenza 3 (PCR) Not detected Parainfluenza 4 (PCR) Not detected RSV (PCR) Not detected Entero/Rhino (PCR) Not detected Assessment & Plan Assessment & Plan narrative: Possible meningitis. Admit to medical inpatient. CT head negative. Continue IV Vancomycin and Ceftriaxone and follow up CSF cultures. IVF. Monitor for sepsis. Dehydration. Likely from nausea and vomiting. IVF and IV antiemetics. Nausea and vomiting. Likely from above. Manage as above. DVT PPx SCDs Code status full code Disposition home in 2-3 days Time-Based Coding :: [TOTAL MINUTES] spent with patient and on the chart (including review of chart, obtaining history, exam, reviewing outside data, placing orders, documenting exam and treatment plan, and counseling patient) on [DATE].
[2024-01-25] MEDS: VANCOMYCIN 1,000 MG/200 ML PIGGYBACK 200 MG IV ×4 (05:40→23:38)
[2024-01-25] MEDS: SODIUM CHLORIDE 0.9% 1,000 ML 75 ML IV (06:52)
--- NOTE | 2024-01-25 07:05 | PM.HP.1 ---
History of Present Illness History of Present Illness Chief complaint: Headache, neck px, body px, chills Narrative: Niurka MONTERO 33 year old female with no reported past medical history presents with complaints of generalized body aches and headache. Per the patient's report, over the past 5 days, the patient started to have increasing generalized bodyaches and a moderate to severe headache. Yesterday, the patient also developed subjective fever and chills as well as nausea and vomiting. The patient was unable to hold much down orally due to the nausea and vomiting. The patient otherwise denies any focal weakness or vision changes. The patient also denies any chest pain, coughing, shortness of breath, diarrhea or syncope. In our ER, the patient was hypodermically stable and without sign of sepsis. Due to ongoing headache with negative CT head, our ER physician did do a lumbar puncture and CSF fluid shows elevated WBC as well as protein. Empiric IV Acyclovir, Vancomycin and Ceftriaxone given along with IVF. CSF fluid was also sent for cutltures. [facility] Social History household members: spouse Smoking Status: Never smoker Meds Home Medications and Allergies Home Medications Medication Instructions Recorded Confirmed Type No Known Home Medications 01/25/24 01/25/24 History Allergies Allergy/AdvReac Type Severity Reaction Status Date / Time No Known Drug Allergies Allergy Verified 01/24/24 22:06 Review of Systems Review of Systems ROS: Yes All systems reviewed with the patient and are negative except as otherwise documented Exam Vital Signs (past 8 hours): - 01/24/24 23:30 01/25/24 00:03 01/25/24 00:15 Temperature Pulse Rate 61 69 73 Respiratory Rate 18 Blood Pressure Pulse Oximetry 99 99 96 Oxygen Delivery Method Room Air Oxygen Flow Rate 01/25/24 00:15 01/25/24 00:30 01/25/24 00:30 Temperature Pulse Rate 64 Respiratory Rate 17 Blood Pressure 121/74 119/75 Pulse Oximetry 99 Oxygen Delivery Method Room Air Oxygen Flow Rate 01/25/24 01:00 01/25/24 01:00 01/25/24 01:30 Temperature Pulse Rate 74 84 Respiratory Rate 36 H 5 L Blood Pressure 110/69 Pulse Oximetry 98 Oxygen Delivery Method Oxygen Flow Rate 01/25/24 01:30 01/25/24 02:00 01/25/24 02:00 Temperature Pulse Rate 64 Respiratory Rate 19 Blood Pressure 118/76 121/75 Pulse Oximetry 97 Oxygen Delivery Method Oxygen Flow Rate 01/25/24 02:30 01/25/24 02:30 01/25/24 03:00 Temperature Pulse Rate 74 70 Respiratory Rate 19 19 Blood Pressure 125/84 Pulse Oximetry 96 99 Oxygen Delivery Method Oxygen Flow Rate 01/25/24 03:00 01/25/24 03:30 01/25/24 03:30 Temperature Pulse Rate 60 Respiratory Rate 14 Blood Pressure 119/67 113/63 Pulse Oximetry 96 Oxygen Delivery Method Oxygen Flow Rate 01/25/24 04:00 01/25/24 04:00 01/25/24 04:30 Temperature Pulse Rate 84 73 Respiratory Rate 21 18 Blood Pressure 113/64 Pulse Oximetry 97 100 Oxygen Delivery Method Room Air Oxygen Flow Rate 01/25/24 04:30 01/25/24 05:00 01/25/24 05:00 Temperature Pulse Rate 73 Respiratory Rate 19 Blood Pressure 115/71 114/71 Pulse Oximetry 99 Oxygen Delivery Method Room Air Oxygen Flow Rate 01/25/24 05:30 01/25/24 05:30 01/25/24 06:09 Temperature 99.0 F Pulse Rate 61 80 Respiratory Rate 31 H 18 Blood Pressure 117/72 117/68 Pulse Oximetry 99 96 Oxygen Delivery Method Room Air Oxygen Flow Rate 0 Oxygen Delivery Method Room Air Oxygen Flow Rate 0 Const General: ill appearing Nutritional Appearance: well nourished Orientation: alert HENMT Head: normal to inspection Mouth: oral mucosae normal Eyes General: appearance normal, both eyes and all related structures Neck Other: pain with neck flexion Resp Effort & Inspection: normal respiratory effort Auscultation: clear to auscultation bilaterally Cardio Rate: regular rate GI Inspection: normal to inspection Back/Spine/Pelvis Back: normal to inspection Skin General: no rashes or lesions noted Rashes: no rashes Extrem General: normal to inspection Psych Mental Status: mental status grossly normal Objective Labs 01/25/24 08:05 01/25/24 08:05 Labs: Laboratory Results - last 24 hr 01/24/24 01/24/24 01/25/24 21:25 22:45 02:40 WBC 8.0 RBC 4.26 Hgb 13.0 Hct 37.8 MCV 88.7 MCH 30.5 MCHC 34.3 RDW 12.4 Plt Count 260 Neut % (Auto) 74.7 Lymph % (Auto) 14.3 L [place] % (Auto) 9.9 Eos % (Auto) 0.5 L Baso % (Auto) 0.6 Neut # (Auto) 6000 Lymph # (Auto) 1200 [place] # (Auto) 800 Eos # (Auto) 0 Baso # (Auto) 100 PT 13.0 H INR 1.1 APTT 33 Sodium 137 Potassium 3.5 Chloride 106 Carbon Dioxide 21 L BUN 16 Creatinine 0.56 Estimated GFR > 60 BUN/Creatinine Ratio 28.6 H Glucose 88 Lactate 1.2 Calcium 8.6 Total Bilirubin 0.8 AST 23 ALT 17 Alkaline Phosphatase 58 Total Protein 7.0 Albumin 4.2 Globulin 2.8 Albumin/Globulin Ratio 1.5 Lipase 60 Procalcitonin 0.088 CSF Tube Number 1 CSF Volume 3.0 ml CSF Appearance Clear CSF Color Colorless CSF WBC 393 H CSF RBC 269 CSF Mononuclear WBCs 100 CSF Polynuclear WBCs 0 CSF Glucose 40 CSF Total Protein 153 H CSF C.neoform/gat PCR Not detected CSF CMV DNA (PCR) Not detected CSF Enterovirus (PCR) Not detected CSF E. coli (PCR) Not detected CSF H. influenzae (PCR) Not detected CSF HSV I (PCR) Not detected CSF HSV II (PCR) Not detected CSF HHV 6 (PCR) Not detected CSF L.monocytogenes PCR Not detected CSF N. meningitidis PCR Not detected CSF Parechovirus (PCR) Not detected CSF S. agalactiae (PCR) Not detected CSF S. pneumoniae (PCR) Not detected CSF VZV (PCR) Detected Chlamy pneumoniae PCR Not detected Adenovirus (PCR) Not detected B.parapertussis DNA PCR Not detected Coronavirus OC43 (PCR) Not detected Coronavirus HKU1 (PCR) Not detected Coronavirus 229E (PCR) Not detected SARS-CoV-2 (PCR) Not detected Coronavirus NL63 (PCR) Not detected Human Metapneumovir PCR Not detected Influenza Type A (PCR) Not detected Influenza Type B (PCR) Not detected M. pneumoniae (PCR) Not detected Parainfluenza 1 (PCR) Not detected Parainfluenza 2 (PCR) Not detected Parainfluenza 3 (PCR) Not detected Parainfluenza 4 (PCR) Not detected RSV (PCR) Not detected Entero/Rhino (PCR) Not detected Assessment & Plan Assessment & Plan narrative: #Concern for Meningitis, more likely VZV (viral) as opposed to bacterial Case was discussed with ID at [facility] on how to approach. It was recommended to continue ceftriaxone / vanco until CSF cultures finalize. In regards to VZV in CSF it was recommend to continue acyclovir 10mg/kg/q8hr with IVF running to prevent renal injury. Patient should be treated as if she has disseminated disease and placed in airborn pre-cautions. Will plan to touch base again with ID on duration of therapy. DVT PPx SCDs Code status full code Disposition unclear at this time Time-Based Coding :: [TOTAL MINUTES] spent with patient and on the chart (including review of chart, obtaining history, exam, reviewing outside data, placing orders, documenting exam and treatment plan, and counseling patient) on [DATE].
--- NOTE | 2024-01-25 07:52 | PC.NURSE ---
Admit/NOC Shift Note- Patient arrived to room from ER at 0635. Patient alert and oriented and independent. Admit done and skin check completed. Patient oriented to bed and bed controls, room, bathroom, lights, phone, menu, and call pfeiffer/tv remote. patient agrees to call for assistance.
[2024-01-25 08:59] LABS: Add Manual Diff / Slide Review NO; Basophils Absolute Auto 0 /uL (0-100); Basophils Percent Auto 0.3 % (0-2); Eosinophils Absolute Auto 0 /uL (0-450); Eosinophils Percent Auto 0.1 % (2-4); Hematocrit 37.3 % (36-46); Hemoglobin 12.7 g/dL (12.0-16.0); Lymphocytes Absolute Auto 500 /uL (1100-4500); Lymphocytes Percent Auto 6.4 % (25-40); Mean Corpuscular HGB Conc 34.2 % (30-36); Mean Corpuscular Hemoglobin 30.3 PG (26-34); Mean Corpuscular Volume 88.6 fL (80-100); Monocytes Absolute Auto 200 /uL (0-900); Monocytes Percent Auto 2.5 % (3-14); Neutrophils Absolute Auto 7600 /uL (1500-7000); Neutrophils Percent Auto 90.7 % (50-75); Platelet Count 236 X10^3/uL (150-400); Red Blood Cell Count 4.21 X10^6/uL (4.0-5.2); Red Cell Distribution Width 12.1 % (11.6-14.8); White Blood Cell Count 8.3 X10^3/uL (4.5-11.0)
[2024-01-25 09:17] LABS: BUN Creatinine Ratio 17.6 (6-22); Blood Urea Nitrogen 9 mg/dL (7-17); Calcium 8.5 mg/dL (8.4-10.2); Carbon Dioxide 20 mmol/L (22-32); Chloride 108 mmol/L (98-107); Estimated Glomerular Filt Rate > 60 mL/min (>60); Glucose 136 mg/dL (70-100); HEMOLYSIS < 15 (0-50); Potassium 3.6 mmol/L (3.4-5.1); Sodium 134 mmol/L (137-145)
[2024-01-25] MEDS: LACTATED RINGERS 1,000 ML 1000 ML IV (10:12)
[2024-01-25] MEDS: KETOROLAC 30 MG/ML VIAL 15 MG IV (10:45)
--- NOTE | 2024-01-25 12:09 | PC.NURSE ---
Patient A&OX4, VSS, on RA. Initially temp 99.4, upon recheck temp 98.7. She reports Headache to top of head 4-5/10 best controlled with toradol IV (received in ED) MD notified and received order for additional x1 dose. She reports pain to head increases with mobility. She denies nausea/ vomitting SOB or respiratiory distress. She tolerates IVF LR x1 liter bolus well and is voiding adequately. She denies dizziness or palpitations with ambulating to bBR. She rates head pain 5/10 upon reassessment and medicated with PRNy hydrocodone. Patient transferred to Room 219 for airborne precautions. Vancomycin IVF running. Endorsed care/report to Severiano CORMIER.
[2024-01-25] MEDS: LACTATED RINGERS 1,000 ML 150 ML IV ×2 (12:38→20:11)
[2024-01-26] MEDS: DEXTROSE 5% IV ×4 (00:45→23:27)
[2024-01-26] MEDS: WATER IV ×4 (00:45→23:27)
[2024-01-26] MEDS: ACYCLOVIR IV ×4 (00:45→23:27)
[2024-01-26] MEDS: LACTATED RINGERS 1,000 ML 150 ML IV (02:46)
[2024-01-26] MEDS: VANCOMYCIN 1,000 MG/200 ML PIGGYBACK 200 MG IV ×3 (05:38→18:31)
[2024-01-26] MEDS: HYDROCODONE/ACET 5/325 TABLET 1 TAB PO ×4 (06:06→17:22)
[2024-01-26 08:00] VITALS: BP 113/69; PULSE 80; RESP 16; TEMP 36.7; O2SAT 100
[2024-01-26] MEDS: ONDANSETRON 4 MG ODT SL (12:34)
[2024-01-26] MEDS: VANCOMYCIN TROUGH 1 REQUEST MISC (12:34)
[2024-01-26 12:36] LABS: Vancomycin Trough 14.2 ug/mL (10-20)
--- NOTE | 2024-01-26 12:37 | DI.RAD.S_ITS ---
PROCEDURE: XR CHEST 1V INDICATIONS: chest pain TECHNIQUE: One view of the chest was acquired. COMPARISON: [facility], CR, XR CHEST 1V, 01/24/2024, 22:43. FINDINGS: Surgical changes and devices: None. Lungs and pleura: Lungs are clear. No pleural effusions or pneumothorax. Mediastinum: Mediastinal contours appear normal. Heart size is normal. Bones and chest wall: No suspicious bony lesions. Overlying soft tissues appear unremarkable. IMPRESSION: No radiographic evidence of acute abnormality. If symptoms persist or worsen, CT chest could be performed Dictated by: Ervin Giraldo M.D. on 01/26/2024 at 13:20 Approved by: Ervin Giraldo M.D. on 01/26/2024 at 13:44
[2024-01-26] MEDS: ACETAMINOPHEN 325 MG TABLET 975 MG PO (12:39)
--- NOTE | 2024-01-26 13:01 | EKG_ITS ---
[place] [id number] [place] [id number] Test Date: 2024-01-26 Pat Name: Love Escalante Department: [facility] Room: 219 Gender: Female Case Management Assistant: GUERA : 1990 Requested By: Order Number: [id number] Reading MD: Steve Rojo Measurements Intervals [place] Rate: 66 P: 69 OK: 116 QRS: 36 QRSD: 76 T: 21 QT: 384 QTc: 402 Interpretive Statements Normal sinus rhythm T wave abnormality, consider anterior ischemia Electronically Signed On 01-26-2024 18:03:05 PDT by Steve Rojo
[2024-01-26 13:37] LABS: Troponin I < 0.012 ng/mL (0.01-0.034)
[2024-01-26 16:00] VITALS: BP 110/72; PULSE 72; RESP 18; TEMP 36.7; O2SAT 99
[2024-01-26] MEDS: VANCOMYCIN PEAK 1 REQUEST MISC (16:07)
--- NOTE | 2024-01-26 16:22 | PM.PN.1 ---
Subjective Subjective Interval history: Subjective: She would some chest pain this afternoon which improved with hydrocodone. She also has a persistent headache which improved with pain medication. She denies as an nausea. She does have some photophobia. Overall, she feels much better than when she arrived. Exam Vital Signs (past 8 hours): Oxygen Delivery Method Room Air Oxygen Flow Rate 0 Narrative Exam Narrative: NAD, no neck stiffness. She was alert and oriented with normal speech and judgment. Normal motor strength of arms and legs. Cranial nerves are intact. She was normal respiratory effort. Abdomen is flat. Objective ECG Impression: Normal sinus rhythm T wave abnormality, consider anterior ischemia Imaging Multiple studies:: Radiologist's impression: Chest x-ray: No radiographic evidence of acute abnormality. If symptoms persist or worsen, CT chest could be performed Head CT: No acute intracranial pathology Labs 01/25/24 08:05 01/25/24 08:05 Labs: Laboratory Results - last 24 hr 01/26/24 12:04 Troponin I < 0.012 Vancomycin Trough 14.2 PFSH Social History household members: spouse Smoking Status: Never smoker Assessment & Plan Assessment & Plan narrative: 1. Disseminated varicella with meningitis, present on admission and improving. 2. Atypical chest pain with abnormal ECG with anterior T-wave inversions, new and active. PLAN: -continue IV acyclovir for an additional 24 hours. Look for improvement of symptoms. -we will monitor troponins, I am thinking that her abnormal ECG may not represent an acute process. She was no prior ECGs to review. -we will consider an echocardiogram if there is any evidence of abnormal troponins. If she continues to improve and has negative troponins, ALEXI is 01/26. She will be on oral acyclovir and we will discuss with the Infectious Disease prior to discharge. Time-Based Coding :: [TOTAL MINUTES] spent with patient and on the chart (including review of chart, obtaining history, exam, reviewing outside data, placing orders, documenting exam and treatment plan, and counseling patient) on [DATE]. Quality VTE Deep Vein Thrombosis/Pulmonary Embolism Present on Admission: No
[2024-01-26 16:58] LABS: Vancomycin Peak 24.2 ug/mL (20-40)
[2024-01-26] MEDS: polyethylene glycoL 3350 17 GM POWD.PACK PO (17:22)
[2024-01-26] MEDS: cefTRIAXone 2,000 MG in SODIUM CHLORIDE 0.9% 100 ML 200 MG IV (17:44)
[2024-01-26] MEDS: ONDANSETRON 4 MG/2 ML INJ IV ×2 (18:38→23:27)
[2024-01-26 20:10] VITALS: BP 121/83; PULSE 78; RESP 20; O2SAT 97
[2024-01-26] MEDS: HYDROCODONE/ACET 5/325 TABLET 2 TAB PO (20:33)
[2024-01-26 22:27] LABS: Troponin I < 0.012 ng/mL (0.01-0.034)
[2024-01-26] MEDS: MORPHINE 2 MG/ML INJ IV (23:07)
[2024-01-27 00:05] VITALS: BP 123/80; PULSE 78; RESP 18; TEMP 36.6; O2SAT 97
[2024-01-27] MEDS: VANCOMYCIN 1,000 MG/200 ML PIGGYBACK 200 MG IV ×2 (00:47→06:51)
[2024-01-27] MEDS: HYDROCODONE/ACET 5/325 TABLET 2 TAB PO ×2 (02:15→06:59)
[2024-01-27] MEDS: PROMETHAZINE 25 MG TABLET PO ×5 (02:57→23:51)
[2024-01-27] MEDS: DEXTROSE 5% IV ×3 (08:42→23:52)
[2024-01-27] MEDS: ACYCLOVIR IV ×3 (08:42→23:52)
[2024-01-27] MEDS: WATER IV ×3 (08:42→23:52)
--- NOTE | 2024-01-27 09:22 | CM.DANOTE ---
Addendum entered by CINTHYA Bourgeois 01/27/24 11:49: ADD: Discharge anticipated today or tomorrow, po abx. Home w/family. Original Note: Initial DCP Assessment Note Pt is a 33 yo female, resident of [place], admitted for work up and treatment of Disseminated varicella with meningitis, patient on IV acyclovir. PCP: Unknown Payer: [facility] Patient lives independently with spouse. No barriers identified at this time to patient's safe discharge home w/family to assist; close outpatient f/u recommended. CM team will plan to follow clinical course closely in case any DC needs or concerns arise. R/o need for IV abx. CINTHYA Alexander Discharge Planning/Care Management CM Discharge Assessment Start: 01/27/24 09:16 Freq: Status: Active Protocol: Document 01/27/24 09:17 JOSESITO (Rec: 01/27/24 09:22 [id number]) Discharge Planning Assessment Assigned Nutritional Services Director CINTHYA Almanzar DPOA/Assigned Designee Name khang Freeman, Contact Information spouse [phone] sister Advance Directives? No History Provided By Patient,Medical Record Prior Living Arrangements House Household Members spouse Type of transporation used prior to Drives own vehicle admit Independent with ADL's Yes Is patient alert and oriented? Yes Barriers to Discharge No Discharge Plan Home Transportation Arrangement Family Referrals Initiated None needed
[2024-01-27] MEDS: OXYCODONE IR 10 MG TABLET PO ×4 (11:30→23:52)
[2024-01-27 12:00] VITALS: BP 122/84; PULSE 91; RESP 16; TEMP 36.8; O2SAT 98
[2024-01-27] MEDS: OXYCODONE IR 5 MG TABLET PO ×2 (13:33→17:31)
[2024-01-27] MEDS: MORPHINE 2 MG/ML INJ IV (14:46)
[2024-01-27] MEDS: ONDANSETRON 4 MG/2 ML INJ IV ×2 (14:47→19:15)
[2024-01-27] MEDS: diphenhydrAMINE 25 MG TABLET PO ×2 (15:41→23:51)
[2024-01-27] MEDS: ACETAMINOPHEN 325 MG TABLET 975 MG PO (15:41)
--- NOTE | 2024-01-27 16:07 | PM.PN.1 ---
Subjective Subjective Interval history: Subjective: She had a rough night with a fair amount of whole-body pain, headache, ongoing photophobia, and nausea. She was having short-term relief from pain medication. She was also having short term relief from Zofran, the addition of Reglan did help to some degree. Exam Vital Signs (past 8 hours): - 01/27/24 12:00 Temperature 98.3 F Pulse Rate 91 H Respiratory Rate 16 Blood Pressure 122/84 Pulse Oximetry 98 Oxygen Delivery Method Room Air Oxygen Flow Rate 0 Narrative Exam Narrative: NAD, supple neck. Normal mental status, normal speech. Breathing comfortably, normal rate and effort. Abdomen is soft, nontender. Arms and legs are free of edema. She was a small patch of rash on the left buttock medially with a couple of early vesicles. 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 PLAN: Discussed at length with Dr. Sims. -IDSA and Dr. Quintana recommend 14 days of IV acyclovir Q 8 hours in a hospital setting with maintenance fluids and monitoring of renal function. Acyclovir can cause SILVIO if maintenance fluids are not given. -continue as noted. -spoke at length with her mother, who was in the room. Time-Based Coding :: [TOTAL MINUTES] spent with patient and on the chart (including review of chart, obtaining history, exam, reviewing outside data, placing orders, documenting exam and treatment plan, and counseling patient) on [DATE]. Quality VTE Deep Vein Thrombosis/Pulmonary Embolism Present on Admission: No
[2024-01-27] MEDS: HYDROMORPHONE 0.5 MG INJ IV (16:20)
[2024-01-27] MEDS: SODIUM CHLORIDE 0.9% 1,000 ML 75 ML IV (16:21)
[2024-01-27 20:18] VITALS: BP 110/76; PULSE 76; RESP 18; TEMP 36.2; O2SAT 96
[2024-01-28] MEDS: ONDANSETRON 4 MG/2 ML INJ IV ×5 (00:59→23:42)
[2024-01-28] MEDS: PROMETHAZINE 25 MG TABLET PO ×3 (03:58→15:05)
[2024-01-28] MEDS: OXYCODONE IR 10 MG TABLET PO ×2 (03:58→08:50)
[2024-01-28] MEDS: ACETAMINOPHEN 325 MG TABLET 975 MG PO ×3 (03:58→20:35)
[2024-01-28 05:24] LABS: Hematocrit 35.6 % (36-46); Hemoglobin 12.2 g/dL (12.0-16.0); Mean Corpuscular HGB Conc 34.2 % (30-36); Mean Corpuscular Volume 87.5 fL (80-100); Platelet Count 257 X10^3/uL (150-400); Red Blood Cell Count 4.07 X10^6/uL (4.0-5.2); White Blood Cell Count 5.4 X10^3/uL (4.5-11.0)
[2024-01-28 05:53] LABS: BUN Creatinine Ratio 6.7 (6-22); Blood Urea Nitrogen 4 mg/dL (7-17); Calcium 8.4 mg/dL (8.4-10.2); Carbon Dioxide 31 mmol/L (22-32); Chloride 100 mmol/L (98-107); Estimated Glomerular Filt Rate > 60 mL/min (>60); Glucose 92 mg/dL (70-100); HEMOLYSIS < 15 (0-50); Potassium 3.3 mmol/L (3.4-5.1); Sodium 134 mmol/L (137-145)
[2024-01-28] MEDS: SODIUM CHLORIDE 0.9% 1,000 ML 75 ML IV (06:52)
[2024-01-28] MEDS: diphenhydrAMINE 25 MG TABLET PO ×2 (06:52→15:05)
[2024-01-28] MEDS: POTASSIUM CHLORIDE 20 MEQ TAB 40 MEQ PO (06:54)
--- NOTE | 2024-01-28 07:47 | PM.PN.1 ---
Subjective Subjective Interval history: Admitted with disseminated varicella and varicella meningitis. Infectious disease recommends 14 days of IV acyclovir with maintenance IV fluids to prevent SILVIO in the hospital. S: She was feeling better today. Less photophobia. The blinds are open partially. Less neck stiffness and headache. Her nausea has resolved. The current pain medications and nausea medications are working well. She has some isolated scattered vesicles. Exam Vital Signs (past 8 hours): Oxygen Delivery Method Room Air Oxygen Flow Rate 0 Narrative Exam Narrative: NAD, alert and oriented. Fluent speech. Lungs are clear, normal rate and effort. Heart is regular, no murmur gallop or rub. Abdomen is soft, non distended. Extremities are free of edema. She has some isolated scattered vesicles. 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 PLAN: Discussed at length with Dr. Quintana. -IDSA and Dr. Quintana recommend 14 days of IV acyclovir Q 8 hours in a hospital setting with maintenance fluids and monitoring of renal function. Acyclovir can cause SILVIO if maintenance fluids are not given. -no changes to this plan. She continues to improve and we are using pain and nausea medications for symptom relief. Time-Based Coding :: [TOTAL MINUTES] spent with patient and on the chart (including review of chart, obtaining history, exam, reviewing outside data, placing orders, documenting exam and treatment plan, and counseling patient) on [DATE]. Quality VTE Deep Vein Thrombosis/Pulmonary Embolism Present on Admission: No
[2024-01-28 08:00] VITALS: BP 113/77; PULSE 72; RESP 18; TEMP 36.6; O2SAT 98
[2024-01-28] MEDS: polyethylene glycoL 3350 17 GM POWD.PACK PO ×2 (08:50→20:35)
[2024-01-28] MEDS: WATER IV ×3 (08:50→23:42)
[2024-01-28] MEDS: ACYCLOVIR IV ×3 (08:50→23:42)
[2024-01-28] MEDS: DEXTROSE 5% IV ×3 (08:50→23:42)
--- NOTE | 2024-01-28 10:36 | CM.DPNOTE ---
DCP Note CAR SEAT MAKER reviewed EMR. Per chart review, pt has disseminated varicella with meningitis. Per hospitalist in morning rounds, Infectious disease doctor recommends 14 days of IV acyclovir in hospital setting for maintenance of fluids and monitoring renal function. Per pharmacist in morning rounds, pt getting IV pain meds for migraines. No new DCP needs identified at this time. P: here for 14 days of IV acyclovir, likely home with family when stable. CM team will continue to follow as needed CINTHYA Telles
[2024-01-28] MEDS: OXYCODONE IR 5 MG TABLET PO (15:05)
[2024-01-28 20:25] VITALS: BP 100/62; PULSE 63; RESP 16; TEMP 37.1; O2SAT 98
[2024-01-29] MEDS: SODIUM CHLORIDE 0.9% 1,000 ML 75 ML IV ×2 (01:00→15:11)
[2024-01-29 05:12] VITALS: BP 115/81; PULSE 74; RESP 16; TEMP 36.6; O2SAT 97
[2024-01-29] MEDS: ACETAMINOPHEN 325 MG TABLET 975 MG PO ×3 (05:25→17:43)
[2024-01-29 06:17] LABS: Hematocrit 36.5 % (36-46); Hemoglobin 12.8 g/dL (12.0-16.0); Mean Corpuscular Hemoglobin 30.4 PG (26-34); Mean Corpuscular Volume 86.8 fL (80-100); Platelet Count 289 X10^3/uL (150-400); Red Cell Distribution Width 12.1 % (11.6-14.8)
[2024-01-29 06:30] LABS: BUN Creatinine Ratio 14.8 (6-22); Blood Urea Nitrogen 9 mg/dL (7-17); Calcium 8.7 mg/dL (8.4-10.2); Carbon Dioxide 31 mmol/L (22-32); Chloride 100 mmol/L (98-107); Estimated Glomerular Filt Rate > 60 mL/min (>60); Glucose 95 mg/dL (70-100); HEMOLYSIS < 15 (0-50); Potassium 3.6 mmol/L (3.4-5.1); Sodium 134 mmol/L (137-145)
[2024-01-29 08:00] VITALS: BP 108/63; PULSE 87; RESP 14; TEMP 36.7; O2SAT 99
[2024-01-29] MEDS: polyethylene glycoL 3350 17 GM POWD.PACK PO ×2 (08:33→21:02)
[2024-01-29] MEDS: WATER IV ×2 (08:33→16:14)
[2024-01-29] MEDS: DEXTROSE 5% IV ×2 (08:33→16:14)
[2024-01-29] MEDS: ACYCLOVIR IV ×2 (08:33→16:14)
--- NOTE | 2024-01-29 13:55 | CM.DPC ---
DCP Cont: Per MD, will consult again with JONNATHAN VICTOR to confirm that pt has to remain in the hospital to monitor her course of 2 weeks acyclovir or if she could d/c home to finish out the course of treatment for her meningitis. Per RN, pt has been independent in room and is hopeful to d/c home soon. CINTHYA Luna
[2024-01-29] MEDS: OXYCODONE IR 5 MG TABLET PO (16:15)
[2024-01-29] MEDS: diphenhydrAMINE 25 MG TABLET PO (16:17)
[2024-01-29] MEDS: PROMETHAZINE 25 MG TABLET PO ×2 (16:17→21:34)
[2024-01-29] MEDS: ONDANSETRON 4 MG/2 ML INJ IV (17:41)
--- NOTE | 2024-01-29 18:36 | PM.PN.1 ---
Subjective Subjective Interval history: Admitted with disseminated varicella and varicella meningitis. Infectious disease recommends 14 days of IV acyclovir with maintenance IV fluids to prevent SILVIO in the hospital. S: Overnight had severe headache and photophobia again, finally improved this afternoon. Reports vaginal and left buttock lesions which are improving. Added ibuprofen with PPI given stomach irritation today, added fiorocet as well to try to reduce opiate use. Exam Vital Signs (past 8 hours): Oxygen Delivery Method Room Air Oxygen Flow Rate 0 Narrative Exam Narrative: NAD, alert and oriented. Fluent speech. Lungs are clear, normal rate and effort. Heart is regular, no murmur gallop or rub. Abdomen is soft, non distended. Extremities are free of edema. R forehead, left upper buttock small rash, unclear if follicular or vesiscular in nature, not open and no drainage on any site. 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 PLAN: Discussed at length with Dr. Quintana previously. -IDSA and Dr. Quintana recommend 14 days of IV acyclovir Q 8 hours in a hospital setting with maintenance fluids and monitoring of renal function. Acyclovir can cause SILVIO if maintenance fluids are not given. -no changes to this plan. She continues to improve and we are using pain and nausea medications for symptom relief. Time-Based Coding :: [TOTAL MINUTES] spent with patient and on the chart (including review of chart, obtaining history, exam, reviewing outside data, placing orders, documenting exam and treatment plan, and counseling patient) on [DATE]. Quality VTE Deep Vein Thrombosis/Pulmonary Embolism Present on Admission: No
[2024-01-29 20:15] VITALS: BP 104/69; PULSE 62; RESP 18; TEMP 36.4; O2SAT 98
[2024-01-29] MEDS: HYDROMORPHONE 2 MG TABLET PO (21:33)
--- NOTE | 2024-01-29 23:24 | PC.NURSE ---
Pt could benefit from a midline since she needs 14 days of acyclovir infussion.
[2024-01-30] MEDS: ACYCLOVIR IV ×4 (00:02→23:30)
[2024-01-30] MEDS: DEXTROSE 5% IV ×4 (00:02→23:30)
[2024-01-30] MEDS: ONDANSETRON 4 MG/2 ML INJ IV ×6 (00:02→23:32)
[2024-01-30] MEDS: WATER IV ×4 (00:02→23:30)
[2024-01-30] MEDS: PROMETHAZINE 25 MG TABLET PO ×4 (03:44→23:52)
[2024-01-30] MEDS: HYDROMORPHONE 2 MG TABLET PO (03:51)
[2024-01-30] MEDS: HYDROMORPHONE 0.5 MG INJ IV ×2 (05:40→08:42)
[2024-01-30 06:16] LABS: Blood Urea Nitrogen 9 mg/dL (7-17); Calcium 8.6 mg/dL (8.4-10.2); Carbon Dioxide 27 mmol/L (22-32); Chloride 102 mmol/L (98-107); Estimated Glomerular Filt Rate > 60 mL/min (>60); Glucose 102 mg/dL (70-100); HEMOLYSIS < 15 (0-50); Magnesium 2.1 mg/dL (1.6-2.3); Potassium 3.6 mmol/L (3.4-5.1); Sodium 134 mmol/L (137-145)
[2024-01-30] MEDS: SODIUM CHLORIDE 0.9% 1,000 ML 75 ML IV ×2 (07:41→23:29)
--- NOTE | 2024-01-30 09:05 | DIET.CONS ---
Dietary Consultation Note Admission Date: 01/25/2024 05:03 Assessment: 33 y F admitted for disseminated varicella and varicella meningitis. Nutrition screened for LOS. EMR reviewed. Pt with improved po intakes 75-100%. DFM reviewed for meal composition. No recent weight per EMR. BMI normal for age. No nutritional interventions needed at this time. Will continue to monitor po intakes. Ht: 160.02 cm Wt: 57.3 kg BMI: 22.3 Last BM: 01/24/24 (01/25/24 05:09) MNA: 13 Xu Score: 21 Diet: 01/24/24 21:20 NPO Diet Diet Modifications: NPO Type: NPO except for Meds 01/25/24 Breakfast General (Regular) Diet Diet Modifications: Nutrition Percent Meal Consumed 75% 01/29/24 18:00 Percent Meal Consumed 75% 01/29/24 09:00 Percent Meal Consumed 100% 01/28/24 18:00 Labs: RBC 4.20 X10^6/uL (4.0-5.2) 01/29/24 05:20 Hgb 12.8 g/dL (12.0-16.0) 01/29/24 05:20 Hct 36.5 % (36-46) 01/29/24 05:20 Creatinine 0.53 mg/dL (0.52-1.04) 01/30/24 05:00 Lactate 1.2 mmol/L (0.7-2.1) 01/24/24 22:45 Electronically Signed by: Tiffany Diallo 01/30/24 09:05 Clinical Dietitian [address] [id number]
[2024-01-30] MEDS: OXYCODONE IR 10 MG TABLET PO ×4 (10:11→23:32)
[2024-01-30] MEDS: diphenhydrAMINE 50 MG/ML VIAL IV (10:11)
[2024-01-30 12:00] VITALS: BP 105/70; PULSE 71; TEMP 36.5; O2SAT 100
[2024-01-30] MEDS: diphenhydrAMINE 25 MG TABLET PO ×2 (15:08→21:18)
[2024-01-30] MEDS: polyethylene glycoL 3350 17 GM POWD.PACK PO ×2 (15:23→21:00)
--- NOTE | 2024-01-30 17:15 | P.PN_ITS ---
Subjective Subjective Interval history: Admitted with disseminated varicella and varicella meningitis. Infectious disease recommends 14 days of IV acyclovir with maintenance IV fluids to prevent SILVIO in the hospital. S: Overnight had severe headache and photophobia again, finally improved this afternoon. Dilaudid did not help, changed back to oxycodone and benadryl which helped. Midline placed today. Exam Vital Signs (past 8 hours): - 01/30/24 12:00 Temperature 97.7 F Pulse Rate 71 Blood Pressure 105/70 Pulse Oximetry 100 Oxygen Flow Rate 0 Oxygen Delivery Method Room Air Oxygen Flow Rate 0 Narrative Exam Narrative: NAD, alert and oriented. Fluent speech. Lungs are clear, normal rate and effort. Heart is regular, no murmur gallop or rub. Abdomen is soft, non distended. Extremities are free of edema. R forehead, left upper buttock small rash, unclear if follicular or vesiscular in nature, not open and no drainage on any site. 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 2. Opiate induced constipation PLAN: Discussed at length with Dr. Quintana previously. -IDSA and Dr. Quintana recommend 14 days of IV acyclovir Q 8 hours in a hospital setting with maintenance fluids and monitoring of renal function. Acyclovir can cause SILVIO if maintenance fluids are not given. Ordered for midline today. -continue to deal with headaches over the last two days. Will continue current medications as she experiences relief with oxycodone and benadryl. -no bowel movements in multiple days, will start laxitive therapies and consider methylnaltrexone if no bowel movements in the coming days. Time-Based Coding :: [TOTAL MINUTES] spent with patient and on the chart (including review of chart, obtaining history, exam, reviewing outside data, placing orders, documenting exam and treatment plan, and counseling patient) on [DATE]. Quality VTE Deep Vein Thrombosis/Pulmonary Embolism Present on Admission: No
[2024-01-30] MEDS: HYDROMORPHONE 0.5 MG INJ 1 MG IV (17:41)
[2024-01-30] MEDS: METOCLOPRAMIDE 10 MG/2 ML INJ IV (18:35)
[2024-01-30] MEDS: BUTALB/APAP/CAFFEINE 50/325/40 TABLET 1 EACH PO (19:38)
[2024-01-30] MEDS: SENNOSIDES 8.6 MG TABLET 17.2 MG PO (21:00)
[2024-01-30 21:31] VITALS: BP 103/68; PULSE 80; RESP 19; TEMP 36.4; O2SAT 99
[2024-01-30] MEDS: ACETAMINOPHEN 325 MG TABLET 975 MG PO (23:33)
[2024-01-31] MEDS: OXYCODONE IR 10 MG TABLET PO ×2 (03:51→09:32)
[2024-01-31] MEDS: diphenhydrAMINE 25 MG TABLET PO ×3 (03:51→15:08)
[2024-01-31] MEDS: ONDANSETRON 4 MG/2 ML INJ IV (03:52)
[2024-01-31] MEDS: METOCLOPRAMIDE 10 MG/2 ML INJ IV (03:59)
[2024-01-31 06:09] LABS: BUN Creatinine Ratio 10.2 (6-22); Blood Urea Nitrogen 6 mg/dL (7-17); Calcium 9.1 mg/dL (8.4-10.2); Carbon Dioxide 27 mmol/L (22-32); Chloride 102 mmol/L (98-107); Estimated Glomerular Filt Rate > 60 mL/min (>60); Glucose 88 mg/dL (70-100); HEMOLYSIS < 15 (0-50); Potassium 4.1 mmol/L (3.4-5.1); Sodium 135 mmol/L (137-145)
[2024-01-31 07:51] VITALS: BP 103/63; PULSE 72; RESP 16; TEMP 36.3; O2SAT 99
[2024-01-31] MEDS: DEXTROSE 5% IV ×2 (09:01→16:04)
[2024-01-31] MEDS: ACYCLOVIR IV ×2 (09:01→16:04)
[2024-01-31] MEDS: polyethylene glycoL 3350 17 GM POWD.PACK PO (09:01)
[2024-01-31] MEDS: WATER IV ×2 (09:01→16:04)
[2024-01-31] MEDS: IBUPROFEN 600 MG TABLET PO ×2 (09:26→15:08)
[2024-01-31] MEDS: BISACODYL 5 MG TABLET PO (09:27)
[2024-01-31] MEDS: BUTALB/APAP/CAFFEINE 50/325/40 TABLET 1 EACH PO ×2 (09:31→15:08)
[2024-01-31] MEDS: PROMETHAZINE 25 MG TABLET PO (09:32)
--- NOTE | 2024-01-31 11:12 | CM.DPC ---
DCP Cont. Reviewed EMR and team rounds for status updates. Continues 14-day course of IV ABO's. No changes in POC.
[2024-01-31] MEDS: METHYLNALTREXONE 12 MG/0.6 ML VIAL 8 MG SUBCUT (12:56)
[2024-01-31] MEDS: LORazepam 0.5 MG TABLET PO (12:58)
--- NOTE | 2024-01-31 14:16 | P.PN_ITS ---
Subjective Subjective Interval history: Admitted with disseminated varicella and varicella meningitis. Infectious disease recommends 14 days of IV acyclovir with maintenance IV fluids to prevent SILVIO in the hospital. S: Improved headache today. oxycodone and benadryl which helped. Midline placed today. Exam Vital Signs (past 8 hours): - 01/31/24 07:51 Temperature 97.4 F L Pulse Rate 72 Respiratory Rate 16 Blood Pressure 103/63 Pulse Oximetry 99 Oxygen Flow Rate 0 Oxygen Delivery Method Room Air Oxygen Flow Rate 0 Narrative Exam Narrative: NAD, alert and oriented. Fluent speech. Extremities are free of edema. 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 2. Opiate induced constipation PLAN: Discussed at length with Dr. Quintana previously. -IDSA and Dr. Quintana recommend 14 days of IV acyclovir Q 8 hours in a hospital setting with maintenance fluids and monitoring of renal function. Acyclovir can cause SILVIO if maintenance fluids are not given. Now with midline in place. -continue to deal with headaches over the last two days. Will continue current medications as she experiences relief with oxycodone and benadryl. Ativan added for nausea today. -methylnaltrexone added for continued constipation as no improvement with bisacodyl, miralax and senna. -Cr stable around 0.5 since admit. Time-Based Coding :: [TOTAL MINUTES] spent with patient and on the chart (including review of chart, obtaining history, exam, reviewing outside data, placing orders, documenting exam and treatment plan, and counseling patient) on [DATE]. Quality VTE Deep Vein Thrombosis/Pulmonary Embolism Present on Admission: No
[2024-01-31] MEDS: OXYCODONE IR 5 MG TABLET PO (15:08)
[2024-01-31] MEDS: SODIUM CHLORIDE 0.9% 1,000 ML 75 ML IV (16:04)
[2024-01-31 20:51] VITALS: BP 99/66; PULSE 81; RESP 16; TEMP 36.2; O2SAT 99
[2024-02-01] MEDS: DEXTROSE 5% IV ×4 (00:18→23:42)
[2024-02-01] MEDS: ACYCLOVIR IV ×4 (00:18→23:42)
[2024-02-01] MEDS: WATER IV ×4 (00:18→23:42)
[2024-02-01] MEDS: OXYCODONE IR 5 MG TABLET PO ×4 (00:19→19:53)
[2024-02-01] MEDS: diphenhydrAMINE 25 MG TABLET PO ×4 (00:19→19:52)
[2024-02-01] MEDS: PROMETHAZINE 25 MG TABLET PO ×4 (00:19→19:53)
[2024-02-01 07:24] LABS: BUN Creatinine Ratio 14.3 (6-22); Blood Urea Nitrogen 8 mg/dL (7-17); Calcium 8.8 mg/dL (8.4-10.2); Carbon Dioxide 28 mmol/L (22-32); Chloride 102 mmol/L (98-107); Estimated Glomerular Filt Rate > 60 mL/min (>60); Glucose 86 mg/dL (70-100); HEMOLYSIS < 15 (0-50); Magnesium 1.8 mg/dL (1.6-2.3); Potassium 4.1 mmol/L (3.4-5.1); Sodium 134 mmol/L (137-145)
[2024-02-01] MEDS: BUTALB/APAP/CAFFEINE 50/325/40 TABLET 1 EACH PO ×2 (07:59→14:39)
[2024-02-01 08:00] VITALS: BP 112/71; PULSE 79; RESP 16; TEMP 37; O2SAT 99
[2024-02-01] MEDS: polyethylene glycoL 3350 17 GM POWD.PACK PO ×2 (08:05→19:54)
[2024-02-01] MEDS: SODIUM CHLORIDE 0.9% 1,000 ML 75 ML IV (09:19)
--- NOTE | 2024-02-01 13:27 | PM.PN.1 ---
Subjective Subjective Interval history: Admitted with disseminated varicella and varicella meningitis. Infectious disease recommends 14 days of IV acyclovir with maintenance IV fluids to prevent SILVIO in the hospital. S: Still persistent morning headache today. oxycodone and benadryl are continuing to be helpful. Exam Vital Signs (past 8 hours): - 02/01/24 08:00 Temperature 98.6 F Pulse Rate 79 Respiratory Rate 16 Blood Pressure 112/71 Pulse Oximetry 99 Oxygen Flow Rate 0 Oxygen Delivery Method Room Air Oxygen Flow Rate 0 Narrative Exam Narrative: NAD, alert and oriented. Fluent speech. Extremities are free of edema. 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 2. Opiate induced constipation PLAN: Discussed at length with Dr. Quintana previously. -IDSA and Dr. Quintana recommend 14 days of IV acyclovir Q 8 hours in a hospital setting with maintenance fluids and monitoring of renal function. Acyclovir can cause SILVIO if maintenance fluids are not given. Now with midline in place. -continue to deal with headaches over the last 3 days. Will continue current medications as she experiences relief with oxycodone and benadryl. Ativan added for nausea. Consider Meclizine as headaches do seem to occur with movement. -methylnaltrexone somewhat helpful, but needed additional enema after and very painful BM. No improvement with bisacodyl, miralax and senna. Consider repeat additional methylnaltrexone tomorrow, enemas ordered today. -Cr stable around 0.5 since admit. Time-Based Coding :: [TOTAL MINUTES] spent with patient and on the chart (including review of chart, obtaining history, exam, reviewing outside data, placing orders, documenting exam and treatment plan, and counseling patient) on [DATE]. Quality VTE Deep Vein Thrombosis/Pulmonary Embolism Present on Admission: No
[2024-02-01] MEDS: FLEETS ENEMA 1 EACH PR (13:36)
[2024-02-01] MEDS: IBUPROFEN 600 MG TABLET PO (19:52)
[2024-02-01] MEDS: SENNOSIDES 8.6 MG TABLET 17.2 MG PO (19:53)
[2024-02-01 20:00] VITALS: BP 105/65; PULSE 86; RESP 20; TEMP 37.1; O2SAT 100
[2024-02-02] MEDS: BUTALB/APAP/CAFFEINE 50/325/40 TABLET 1 EACH PO ×2 (06:32→16:11)
[2024-02-02] MEDS: diphenhydrAMINE 25 MG TABLET PO ×2 (06:32→20:44)
[2024-02-02] MEDS: PROMETHAZINE 25 MG TABLET PO ×3 (06:32→20:44)
[2024-02-02] MEDS: OXYCODONE IR 5 MG TABLET PO ×5 (06:36→20:44)
--- NOTE | 2024-02-02 07:46 | PM.PN.1 ---
Subjective Subjective Interval history: Interval history: Admitted with disseminated varicella and varicella meningitis. Infectious disease recommends 14 days of IV acyclovir with maintenance IV fluids to prevent SILVIO in the hospital. S: Less headache, less photophobia. Was able to take a shower today. Lesions are all resolved. Exam Vital Signs (past 8 hours): Oxygen Delivery Method Room Air Oxygen Flow Rate 0 Narrative Exam Narrative: NAD, alert and oriented. Fluent speech. Lungs are clear, normal rate and effort. Heart is regular, no murmur gallop or rub. Abdomen is soft, non distended. Extremities are free of edema. 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 2. Opiate induced constipation PLAN: - 14 days of IV acyclovir Q 8 hours in a hospital setting with maintenance fluids and monitoring of renal function. Acyclovir can cause SILVIO if maintenance fluids are not given. Now with midline in place. -Cr stable around 0.5 since admit. PLAN: -continue current medical treatment, we will discuss isolation requirements with Infectious Disease tomorrow. Time-Based Coding :: [TOTAL MINUTES] spent with patient and on the chart (including review of chart, obtaining history, exam, reviewing outside data, placing orders, documenting exam and treatment plan, and counseling patient) on [DATE]. Quality VTE Deep Vein Thrombosis/Pulmonary Embolism Present on Admission: No
[2024-02-02] MEDS: DEXTROSE 5% IV ×3 (08:55→23:49)
[2024-02-02] MEDS: WATER IV ×3 (08:55→23:49)
[2024-02-02] MEDS: SODIUM CHLORIDE 0.9% 1,000 ML 75 ML IV ×2 (08:55→23:49)
[2024-02-02] MEDS: ACYCLOVIR IV ×3 (08:55→23:49)
[2024-02-02] MEDS: IBUPROFEN 600 MG TABLET PO ×2 (08:55→16:11)
[2024-02-02] MEDS: polyethylene glycoL 3350 17 GM POWD.PACK PO ×2 (08:56→20:47)
[2024-02-02] MEDS: METOCLOPRAMIDE 10 MG/2 ML INJ IV ×2 (09:14→15:18)
--- NOTE | 2024-02-02 12:33 | CM.DPC ---
DCP Continued: Reviewed EMR and team rounds for pt?s medical status. Per team rounds, pt to continue with 14-day course of IV acyclovir, midline has been placed. Per RN, pt has family at bedside and does not seem to need any emotional support currently. No new discharge needs identified at this time. Plan: Continuing with IV abx treatment. CM Team will continue to follow for coordination of discharge plans. ARELY Burton
[2024-02-02 20:00] VITALS: BP 103/64; PULSE 80; RESP 18; TEMP 36.7; O2SAT 97
[2024-02-02] MEDS: SENNOSIDES 8.6 MG TABLET 17.2 MG PO (20:47)
[2024-02-03] MEDS: BUTALB/APAP/CAFFEINE 50/325/40 TABLET 1 EACH PO ×2 (07:32→18:51)
[2024-02-03] MEDS: IBUPROFEN 600 MG TABLET PO ×2 (07:32→18:50)
[2024-02-03] MEDS: OXYCODONE IR 10 MG TABLET PO ×2 (07:32→22:08)
[2024-02-03] MEDS: PROMETHAZINE 25 MG TABLET PO ×4 (07:33→22:08)
--- NOTE | 2024-02-03 07:37 | P.PN_ITS ---
Subjective Subjective Interval history: S: Overall she was improving. Headache today which lasted from the morning to early afternoon. She was feeling much better this evening is sitting up in a chair. No dyspnea. No skin lesions. Exam Vital Signs (past 8 hours): Oxygen Delivery Method Room Air Oxygen Flow Rate 0 Narrative Exam Narrative: NAD, alert and oriented. Fluent speech. Lungs are clear, normal rate and effort. Heart is regular, no murmur gallop or rub. Abdomen is soft, non distended. Extremities are free of edema. 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 2. Opiate induced constipation PLAN: - 14 days of IV acyclovir Q 8 hours in a hospital setting with maintenance fluids and monitoring of renal function. Acyclovir can cause SILVIO if maintenance fluids are not given. Now with midline in place. -Cr stable around 0.5 since admit. -continue current medical treatment -I discussed with Infectious Disease today, she was going to not require any further isolation. ALEXI: 02/07. Time-Based Coding :: [TOTAL MINUTES] spent with patient and on the chart (including review of chart, obtaining history, exam, reviewing outside data, placing orders, documenting exam and treatment plan, and counseling patient) on [DATE]. Quality VTE Deep Vein Thrombosis/Pulmonary Embolism Present on Admission: No
[2024-02-03] MEDS: WATER IV ×3 (08:05→23:12)
[2024-02-03] MEDS: polyethylene glycoL 3350 17 GM POWD.PACK PO ×2 (08:05→19:59)
[2024-02-03] MEDS: METOCLOPRAMIDE 10 MG/2 ML INJ IV ×2 (08:05→14:24)
[2024-02-03] MEDS: DEXTROSE 5% IV ×3 (08:05→23:12)
[2024-02-03] MEDS: ACYCLOVIR IV ×3 (08:05→23:12)
[2024-02-03] MEDS: ONDANSETRON 4 MG/2 ML INJ IV (09:17)
[2024-02-03] MEDS: OXYCODONE IR 5 MG TABLET PO ×3 (11:51→18:24)
[2024-02-03] MEDS: SODIUM CHLORIDE 0.9% 1,000 ML 75 ML IV (14:58)
--- NOTE | 2024-02-03 16:01 | CM.DPC ---
DCP Cont: Per MD, pt likely will complete her 14 day course of IV acyclovir on Mon02/07/24 this week and be able to discharge home at that time. Per RN, pt has continued to have headaches but independent in room and no concerns noted at this time. CINTHYA Luna
[2024-02-03] MEDS: SENNOSIDES 8.6 MG TABLET 17.2 MG PO (19:59)
[2024-02-03 20:00] VITALS: BP 121/74; PULSE 88; RESP 18; TEMP 36.5; O2SAT 100
[2024-02-04] MEDS: OXYCODONE IR 10 MG TABLET PO (01:55)
[2024-02-04] MEDS: PROMETHAZINE 25 MG TABLET PO ×5 (02:00→18:40)
[2024-02-04] MEDS: OXYCODONE IR 5 MG TABLET PO ×6 (05:46→21:13)
[2024-02-04] MEDS: SODIUM CHLORIDE 0.9% 1,000 ML 75 ML IV ×2 (05:48→20:37)
--- NOTE | 2024-02-04 07:45 | P.PN_ITS ---
Subjective Subjective Interval history: S: She was improved overall except she continues to have nocturnal and a.m. headaches described as a band around the skull. She was minimal neck stiffness or pain. She still has residual photophobia. She did have 2 episodes of dry heaves this morning. She was feels better in the afternoon after about 3:00 p.m.. Increased stimulation tends to precipitate her headache. She has no history of chronic headache. Exam Vital Signs (past 8 hours): Oxygen Delivery Method Room Air Oxygen Flow Rate 0 Narrative Exam Narrative: NAD, alert and oriented. Fluent speech. Lungs are clear, normal rate and effort. Heart is regular, no murmur gallop or rub. Abdomen is soft, non distended. Extremities are free of edema. 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 2. Opiate induced constipation PLAN: -14 days of IV acyclovir Q 8 hours in a hospital setting with maintenance fluids and monitoring of renal function. Acyclovir can cause SILVIO if maintenance fluids are not given. Now with midline in place. -monitor renal function. -continue current medical treatment -Out of isolation 02/02 (discussed with ID). Time-Based Coding :: [TOTAL MINUTES] spent with patient and on the chart (including review of chart, obtaining history, exam, reviewing outside data, placing orders, documenting exam and treatment plan, and counseling patient) on [DATE]. Quality VTE Deep Vein Thrombosis/Pulmonary Embolism Present on Admission: No
[2024-02-04 08:00] VITALS: BP 110/75; PULSE 78; RESP 16; TEMP 35.9; O2SAT 100
[2024-02-04] MEDS: WATER IV ×2 (08:18→16:25)
[2024-02-04] MEDS: BUTALB/APAP/CAFFEINE 50/325/40 TABLET 1 EACH PO ×2 (08:18→16:26)
[2024-02-04] MEDS: polyethylene glycoL 3350 17 GM POWD.PACK PO ×2 (08:18→21:13)
[2024-02-04] MEDS: ONDANSETRON 4 MG/2 ML INJ IV ×4 (08:18→21:21)
[2024-02-04] MEDS: DEXTROSE 5% IV ×2 (08:18→16:25)
[2024-02-04] MEDS: IBUPROFEN 600 MG TABLET PO ×2 (08:18→18:22)
[2024-02-04] MEDS: ACYCLOVIR IV ×2 (08:18→16:25)
[2024-02-04] MEDS: diphenhydrAMINE 25 MG TABLET PO ×3 (09:38→21:21)
[2024-02-04 11:42] LABS: Hematocrit 35.4 % (36-46); Hemoglobin 12.4 g/dL (12.0-16.0); Mean Corpuscular Hemoglobin 30.5 PG (26-34); Mean Corpuscular Volume 87.1 fL (80-100); Platelet Count 303 X10^3/uL (150-400); Red Blood Cell Count 4.06 X10^6/uL (4.0-5.2); Red Cell Distribution Width 12.6 % (11.6-14.8); White Blood Cell Count 8.3 X10^3/uL (4.5-11.0)
[2024-02-04 11:54] LABS: BUN Creatinine Ratio 7.7 (6-22); Blood Urea Nitrogen 4 mg/dL (7-17); Carbon Dioxide 26 mmol/L (22-32); Chloride 105 mmol/L (98-107); Estimated Glomerular Filt Rate > 60 mL/min (>60); Glucose 99 mg/dL (70-100); HEMOLYSIS < 15 (0-50); Potassium 3.6 mmol/L (3.4-5.1); Sodium 137 mmol/L (137-145)
[2024-02-04 20:00] VITALS: BP 100/61; PULSE 74; RESP 16; TEMP 36.4; O2SAT 97
[2024-02-04] MEDS: SENNOSIDES 8.6 MG TABLET 17.2 MG PO (21:13)
[2024-02-05] MEDS: PROMETHAZINE 25 MG TABLET PO ×5 (00:12→20:43)
[2024-02-05] MEDS: IBUPROFEN 600 MG TABLET PO ×3 (00:12→17:10)
[2024-02-05] MEDS: WATER IV ×3 (00:13→17:05)
[2024-02-05] MEDS: DEXTROSE 5% IV ×3 (00:13→17:05)
[2024-02-05] MEDS: ACYCLOVIR IV ×3 (00:13→17:05)
[2024-02-05] MEDS: OXYCODONE IR 5 MG TABLET PO ×6 (00:19→18:44)
[2024-02-05] MEDS: diphenhydrAMINE 25 MG TABLET PO ×3 (03:57→17:10)
[2024-02-05] MEDS: ONDANSETRON 4 MG/2 ML INJ IV ×2 (07:07→18:44)
--- NOTE | 2024-02-05 07:47 | PM.PN.1 ---
Subjective Subjective Interval history: S: Persistent headache and photophobia. Low less nausea today. No neck stiffness. The pain is mostly around the sides of her scalp from the front to the lateral aspect. Exam Vital Signs (past 8 hours): Oxygen Delivery Method Room Air Oxygen Flow Rate 0 Narrative Exam Narrative: NAD, alert and oriented. Fluent speech. Lungs are clear, normal rate and effort. Heart is regular, no murmur gallop or rub. Abdomen is soft, non distended. Extremities are free of edema. 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 2. Opiate induced constipation PLAN: -14 days of IV acyclovir Q 8 hours in a hospital setting with maintenance fluids and monitoring of renal function. Acyclovir can cause SILVIO if maintenance fluids are not given. Now with midline in place. -monitor renal function. -continue current medical treatment -Out of isolation 02/02 (discussed with ID). -02/06 is last day of acyclovir. -MRI brain without contrast today to re-evaluate. ALEXI: 02/07 if her symptoms improve. Time-Based Coding :: [TOTAL MINUTES] spent with patient and on the chart (including review of chart, obtaining history, exam, reviewing outside data, placing orders, documenting exam and treatment plan, and counseling patient) on [DATE]. Quality VTE Deep Vein Thrombosis/Pulmonary Embolism Present on Admission: No
[2024-02-05 08:00] VITALS: BP 103/65; PULSE 81; RESP 12; TEMP 36.2; O2SAT 99
[2024-02-05] MEDS: polyethylene glycoL 3350 17 GM POWD.PACK PO ×2 (08:27→20:42)
[2024-02-05] MEDS: BUTALB/APAP/CAFFEINE 50/325/40 TABLET 1 EACH PO ×2 (10:19→15:28)
[2024-02-05] MEDS: SODIUM CHLORIDE 0.9% 1,000 ML 75 ML IV (14:05)
--- NOTE | 2024-02-05 14:56 | DI.MRI.S_ITS ---
PROCEDURE: MR HEAD/BRAIN WO/W CON INDICATIONS: persist LIRA with zoster meningitis TECHNIQUE: Noncontrast axial T1 spin echo, axial T2 fast spin echo, sagittal and axial FLAIR, coronal T2 fast spin echo, axial gradient echo, axial diffusion and ADC through the brain. After the administration of contrast, axial and coronal and sagittal 3D VIBE or T1 spin echo with fat saturation through the brain. COMPARISON: [facility], CT, CT HEAD/BRAIN WO CON, 01/24/2024, 23:52. FINDINGS: Image quality: Excellent. CSF Spaces: Basal cisterns are patent. No extra-axial fluid collections. Ventricles are normal in size and shape. Brain: There is abnormally increased FLAIR signal seen along the sulci within the superior aspect of the right frontal lobe. Susceptibility artifact can be seen within this region. Generalized prominence of the extra-axial vessels can be seen at this site, yet without abnormal parenchymal enhancement at this site. A few scattered T2 hyperintense foci can be seen within the periventricular and deep white matter. These are nonspecific. No midline shift. No intracranial masses. No abnormal intracranial enhancement. The brainstem appears normal. Diffusion-weighted images demonstrate no acute infarct. No chronic ischemic insults. Normal intravascular flow voids are present. Skull and face: Calvarial marrow is normal in signal. Orbits appear normal. Sinuses: Sinuses and mastoids appear clear. IMPRESSION: These imaging findings are most compatible with mild subacute subarachnoid hemorrhage involving the superior aspect of the right frontal lobe. Prominence of extra-axial vessels can be seen within this region. Follow-up examinations are recommended. No abnormal parenchymal enhancement can be seen. No masses are seen. Note: Case discussed by telephone with Dr. Omkar Rojo at 5:19 p.m. [employer] time on February 05, 2024. Dictated by: Sina Fernandes M.D. on 02/05/2024 at 16:08 Transcribed by: ERICKSON on 02/05/2024 at 16:17 Approved by: Sina Fernandes M.D. on 02/05/2024 at 16:21
[2024-02-05 20:00] VITALS: BP 103/66; PULSE 94; RESP 18; TEMP 36.4; O2SAT 99
[2024-02-05] MEDS: SENNOSIDES 8.6 MG TABLET 17.2 MG PO (20:42)
[2024-02-06] MEDS: DEXTROSE 5% IV ×3 (00:23→16:30)
[2024-02-06] MEDS: ACYCLOVIR IV ×3 (00:23→16:30)
[2024-02-06] MEDS: WATER IV ×3 (00:23→16:30)
[2024-02-06] MEDS: OXYCODONE IR 5 MG TABLET PO ×7 (00:24→22:00)
[2024-02-06] MEDS: ONDANSETRON 4 MG/2 ML INJ IV ×3 (00:24→10:40)
[2024-02-06] MEDS: diphenhydrAMINE 25 MG TABLET PO ×2 (00:24→06:26)
[2024-02-06] MEDS: IBUPROFEN 600 MG TABLET PO ×3 (00:32→12:17)
[2024-02-06] MEDS: PROMETHAZINE 25 MG TABLET PO ×3 (04:02→13:23)
[2024-02-06] MEDS: SODIUM CHLORIDE 0.9% 1,000 ML 75 ML IV (06:51)
--- NOTE | 2024-02-06 07:45 | P.PN_ITS ---
Subjective Subjective Interval history: Summary: On day 11 of acyclovir. Had MRI brain yesterday because of persistent headache, this revealed a small subarachnoid hemorrhage. This was discussed with Neurology at [facility] with recommendations for repeat CT of the head and CTA today. Patient was informed. S: She is a little better today, still nauseated. Ongoing LIRA and funny hearing on the right. Exam Vital Signs (past 8 hours): Oxygen Delivery Method Room Air Oxygen Flow Rate 0 Narrative Exam Narrative: NAD, alert and oriented. Fluent speech. Lungs are clear, normal rate and effort. Heart is regular, no murmur gallop or rub. Abdomen is soft, non distended. Extremities are free of edema. Objective Imaging MRI - head: Radiologist's impression: IMPRESSION: These imaging findings are most compatible with mild subacute subarachnoid hemorrhage involving the superior aspect of the right frontal lobe. Prominence of extra-axial vessels can be seen within this region. Follow-up examinations are recommended. No abnormal parenchymal enhancement can be seen. No masses are seen. CT brain and CTA 02/05:: Radiologist's impression: CT brain: Minimal increased density seen involving the superior aspect of the right frontal lobe. The subarachnoid hemorrhage is much better seen on the recent prior MRI. CTA: Limited study demonstrating no findings of intracranial aneurysm or other significant intracranial arterial abnormality. No significant abnormality is seen within the arteries of the neck. 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 2. Small right frontal subarachnoid hemorrhage, new and active. PLAN: -discussed with nurse Urology, repeat CT and CTA of the head and neck today. -14 days of IV acyclovir Q 8 hours in a hospital setting with maintenance fluids and monitoring of renal function. Acyclovir can cause SILVIO if maintenance fluids are not given. Now with midline in place. -monitor renal function. -continue current medical treatment -Out of isolation 02/02 (discussed with ID). -02/06 is last day of acyclovir. -CT brain and CTA reassuring with regard to SAH, continue supportive care. Time-Based Coding :: [TOTAL MINUTES] spent with patient and on the chart (including review of chart, obtaining history, exam, reviewing outside data, placing orders, documenting exam and treatment plan, and counseling patient) on [DATE]. Quality VTE Deep Vein Thrombosis/Pulmonary Embolism Present on Admission: No
[2024-02-06] MEDS: BUTALB/APAP/CAFFEINE 50/325/40 TABLET 1 EACH PO (09:12)
[2024-02-06] MEDS: polyethylene glycoL 3350 17 GM POWD.PACK PO ×2 (09:12→22:00)
[2024-02-06] MEDS: hydrOXYzine HCL 25 MG TABLET PO ×3 (10:36→22:05)
--- NOTE | 2024-02-06 10:49 | DIET.PN1 ---
Dietary Progress Note Assessment: Average recent recorded po intakes is 70%. Meal composition reviewed in DFM. Will continue to monitor po intakes and f/u as needed or in 7 days. Ht: 160.02 cm Wt: 57.3 kg BMI: 22.3 Last BM: 02/06/24 (02/06/24 06:00) MNA: 13 Xu Score: 21 Diet: 01/25/24 Breakfast General (Regular) Diet Diet Modifications: 02/01/24 Lunch Courtesy Tray (Peds, comfort care) Diet Modifications: Nutrition Percent Meal Consumed 50% 02/05/24 13:00 Percent Meal Consumed 75% 02/05/24 08:00 Percent Meal Consumed 10% 02/04/24 18:00 Labs: RBC 4.06 X10^6/uL (4.0-5.2) 02/04/24 11:35 Hgb 12.4 g/dL (12.0-16.0) 02/04/24 11:35 Hct 35.4 % (36-46) L 02/04/24 11:35 Creatinine 0.52 mg/dL (0.52-1.04) 02/04/24 11:35 Lactate 1.2 mmol/L (0.7-2.1) 01/24/24 22:45 Electronically Signed by: Tiffany Diallo 02/06/24 10:49 Clinical Dietitian [address] [address]
[2024-02-06] MEDS: METOCLOPRAMIDE 10 MG/2 ML INJ IV (12:21)
--- NOTE | 2024-02-06 15:00 | DI.CT.S_ITS ---
PROCEDURE: CT ANGIO HEAD AND NECK INDICATIONS: FU SAH TECHNIQUE: After the administration of intravenous contrast, 1 mm thick sections acquired from the aortic arch through the [place] of [place]. 3-dimensional wzigqoc-vzihbjbjm-sbsxvqbxrx (MIP) and/or volume rendering reformats were acquired of the central intracranial vasculature and neck separately. For radiation dose reduction, the following was used: automated exposure control, adjustment of mA and/or kV according to patient size. COMPARISON: [facility], CT, CT HEAD/BRAIN WO CON, 02/06/2024, 14:15. [facility], MR, MR HEAD/BRAIN WO/W CON, 02/05/2024, 15:32. FINDINGS: Image quality: Limited by bolus timing, with venous contamination. There is streak artifact seen through the level of the shoulders. BRAIN: CSF spaces: Ventricles are normal in size and shape. Basal cisterns are patent. No extra-axial fluid collections. Brain: No significant abnormality of the brain can be seen. Skull and face: Calvarium and facial bones appear intact, without suspicious lesions. Orbits appear normal. Sinuses: Sinuses and mastoids are clear. HEAD CT ANGIOGRAPHY: Anterior circulation: Intracranial internal carotid arteries are normal in size and flow. The flow within the paired anterior cerebral arteries is normal and symmetric. The flow within the middle cerebral arteries is normal and symmetric. The anterior communicating artery is seen. No aneurysms are seen. Posterior circulation: Visualized portions of the vertebral arteries demonstrate normal caliber, and join to form a normal appearing basilar artery. Flow within the posterior cerebral arteries is normal and symmetric. No aneurysms are seen. NECK CT ANGIOGRAPHY: Carotid system: The great vessels demonstrate a conventional anatomy as they arise from the aortic arch. The origins of the common carotid arteries appear patent. The common carotid arteries demonstrate normal caliber and courses. The bifurcation regions are both widely patent. The internal carotid arteries demonstrate normal calibers and courses. Posterior circulation: The origins of the vertebral arteries both appear widely patent. The more superior extracranial portions of both vertebral arteries also demonstrate normal courses and calibers. The left vertebral artery is dominant to the right. Soft tissues: Visualized neck soft tissues demonstrate no suspicious abnormalities. Bones: No suspicious bony lesions. Visualized cervical spine appears normally aligned. IMPRESSION: Limited study demonstrating no findings of intracranial aneurysm or other significant intracranial arterial abnormality. No significant abnormality is seen within the arteries of the neck. Any quantitative measurements of stenosis were performed using NASCET criteria. Dictated by: Sina Fernandes M.D. on 02/06/2024 at 13:55 Approved by: Sina Fernandes M.D. on 02/06/2024 at 13:57
--- NOTE | 2024-02-06 15:00 | CM.DPC ---
DCP Cont. Reviewed EMR and team rounds for status updates. Pt had a brain MRI done yesterday due to persistent headaches, initially thought to be related to the acyclovier, however it was positive for a small subarachnoid brain hemorrhage. Neurology was consulted, recommendation was for repeat CT and CTA of the head, this was completed today, results are pending. Last day of IV ABO's are tomorrow, if scans are stable, she will likely d/c Wed. as planned.
--- NOTE | 2024-02-06 15:55 | DI.CT.S_ITS ---
PROCEDURE: CT HEAD/BRAIN WO CON INDICATIONS: Follow-up subarachnoid hemorrhage TECHNIQUE: Noncontrast 4.5 mm thick angled axial sections acquired from the foramen magnum to the vertex, with coronal and sagittal reformats. For radiation dose reduction, the following was used: automated exposure control, adjustment of mA and/or kV according to patient size. COMPARISON: [facility], MR, MR HEAD/BRAIN WO/W CON, 02/05/2024, 15:32. [facility], CT, CT ANGIO HEAD AND NECK, 02/06/2024, 14:15. [facility], CT, CT HEAD/BRAIN WO CON, 01/24/2024, 23:52. FINDINGS: Image quality: Diagnostic. CSF spaces: Basal cisterns are patent. No extra-axial fluid collections. Ventricles are normal in size and shape. Brain: On the prior recent MRI, this patient has findings most suggestive of subarachnoid hemorrhage involving the left frontal lobe superiorly. On the current study, there is minimally increased density seen at this site. Skull and face: Calvarium and visualized facial bones are intact, without suspicious lesions. Sinuses: Visualized sinuses and mastoids are clear. IMPRESSION: Minimal increased density seen involving the superior aspect of the right frontal lobe. The subarachnoid hemorrhage is much better seen on the recent prior MRI. Dictated by: Sina Fernandes M.D. on 02/06/2024 at 13:54 Approved by: Sina Fernandes M.D. on 02/06/2024 at 13:55
[2024-02-06 16:00] VITALS: BP 92/61; PULSE 71; RESP 15; TEMP 36.4; O2SAT 97
[2024-02-06 20:00] VITALS: BP 88/51; PULSE 78; RESP 16; TEMP 36.6; O2SAT 96
[2024-02-06] MEDS: SENNOSIDES 8.6 MG TABLET 17.2 MG PO (22:00)
[2024-02-06 22:02] VITALS: BP 98/58; PULSE 77; RESP 18; TEMP 36.5; O2SAT 99
[2024-02-07] MEDS: DEXTROSE 5% IV ×3 (00:57→15:51)
[2024-02-07] MEDS: WATER IV ×3 (00:57→15:51)
[2024-02-07] MEDS: SODIUM CHLORIDE 0.9% 1,000 ML 75 ML IV ×2 (00:57→15:44)
[2024-02-07] MEDS: ACYCLOVIR IV ×3 (00:57→15:51)
[2024-02-07] MEDS: OXYCODONE IR 5 MG TABLET PO ×6 (07:49→23:18)
[2024-02-07] MEDS: hydrOXYzine HCL 25 MG TABLET PO ×2 (07:49→13:33)
[2024-02-07] MEDS: PROMETHAZINE 25 MG TABLET PO ×4 (07:49→23:18)
[2024-02-07] MEDS: polyethylene glycoL 3350 17 GM POWD.PACK PO ×2 (07:50→21:35)
[2024-02-07 08:00] VITALS: BP 120/80; PULSE 94; RESP 16; TEMP 36.5; O2SAT 99
--- NOTE | 2024-02-07 08:11 | PM.PN.1 ---
Subjective Subjective Interval history: Summary: Admitted with varicella zoster meningitis. She was completing 14 days of IV acyclovir. A persistent headache prompted [employer] imaging on 02/04 atrial to subarachnoid hemorrhage. This was discussed with the [facility] neurology, repeat scans on 02/05 were stable. Continue supportive care. Subjective: She still has a lot of headache symptoms, auditory distortion, and profound nausea in the morning. Hopefully stopping her acyclovir today we will improve some of her symptoms as they may be side effects of her acyclovir versus the resolving meningitis from varicella or subarachnoid hemorrhage. Exam Vital Signs (past 8 hours): Oxygen Delivery Method Room Air Oxygen Flow Rate 0 Narrative Exam Narrative: NAD, alert and oriented. Fluent speech. Lungs are clear, normal rate and effort. Heart is regular, no murmur gallop or rub. Abdomen is soft, non distended. Extremities are free of edema. Objective Imaging CT scan - chest: Radiologist's impression: CT brain and head and neck CTA: Minimal increased density seen involving the superior aspect of the right frontal lobe. The subarachnoid hemorrhage is much better seen on the recent prior MRI. Limited study demonstrating no findings of intracranial aneurysm or other significant intracranial arterial abnormality. No significant abnormality is seen within the arteries of the neck. Labs 02/04/24 11:35 02/04/24 11:35 [facility] Social History household members: spouse Smoking Status: Never smoker Assessment & Plan Assessment & Plan narrative: 1. [employer]ENT/Disseminated Zoster, present on admission and active. 2. Small right frontal subarachnoid hemorrhage, new and active. PLAN: -complete acyclovir today. -ongoing symptomatic management of both nausea and headache. She was not stable enough to be discharged until the symptoms improve. -repeat [employer] imaging yesterday was stable. There is no specific plan for repeat imaging at this point. We will follow her clinical course. ALEXI: Likely 02/08 of her symptoms improve. Time-Based Coding :: [TOTAL MINUTES] spent with patient and on the chart (including review of chart, obtaining history, exam, reviewing outside data, placing orders, documenting exam and treatment plan, and counseling patient) on [DATE]. Quality VTE Deep Vein Thrombosis/Pulmonary Embolism Present on Admission: No
[2024-02-07] MEDS: IBUPROFEN 600 MG TABLET PO ×2 (08:20→18:49)
[2024-02-07] MEDS: BUTALB/APAP/CAFFEINE 50/325/40 TABLET 1 EACH PO (09:38)
[2024-02-07] MEDS: ONDANSETRON 4 MG/2 ML INJ IV (09:38)
--- NOTE | 2024-02-07 11:29 | CM.DPC ---
DCP Cont. Reviewed EMR and team rounds for status updates. Per Hospitalist, pt will need 2-more midnights before being stable enough for d/c. Monitoring for d/c needs and recommendations.
[2024-02-07 20:00] VITALS: BP 104/67; PULSE 82; RESP 18; TEMP 36.6; O2SAT 98
[2024-02-07] MEDS: diphenhydrAMINE 25 MG TABLET PO (23:18)
[2024-02-08] MEDS: hydrOXYzine HCL 25 MG TABLET PO ×3 (05:38→22:18)
[2024-02-08] MEDS: OXYCODONE IR 5 MG TABLET PO ×5 (05:39→22:18)
[2024-02-08] MEDS: PROMETHAZINE 25 MG TABLET PO ×3 (05:42→17:52)
--- NOTE | 2024-02-08 07:47 | PM.PN.1 ---
Subjective Subjective Interval history: Summary: Admitted with varicella zoster meningitis. She was completing 14 days of IV acyclovir. A persistent headache prompted [employer] imaging on 02/04 atrial to subarachnoid hemorrhage. This was discussed with the [facility] neurology, repeat scans on 02/05 were stable. Continue supportive care. She was improved substantially since her last dose of acyclovir yesterday, which indicates that side effects of acyclovir may have been causing some of her symptoms including the nausea. She was able to walk the halls today, this is a 1st. Her photophobia is improved. S: Much less nausea, and no photophobia and minimal headache today. Exam Vital Signs (past 8 hours): Oxygen Delivery Method Room Air Oxygen Flow Rate 0 Narrative Exam Narrative: NAD, alert and oriented. Fluent speech. Lungs are clear, normal rate and effort. Heart is regular, no murmur gallop or rub. Abdomen is soft, non distended. Extremities are free of edema. Objective Imaging Multiple studies: : Radiologist's impression: CT brain and head and neck CTA: Minimal increased density seen involving the superior aspect of the right frontal lobe. The subarachnoid hemorrhage is much better seen on the recent prior MRI. Limited study demonstrating no findings of intracranial aneurysm or other significant intracranial arterial abnormality. No significant abnormality is seen within the arteries of the neck. MRI brain: IMPRESSION: These imaging findings are most compatible with mild subacute subarachnoid hemorrhage involving the superior aspect of the right frontal lobe. Prominence of extra-axial vessels can be seen within this region. Follow-up examinations are recommended. No abnormal parenchymal enhancement can be seen. No masses are seen. Labs 02/08/24 10:00 02/08/24 10:00 [facility] Social History household members: spouse Smoking Status: Never smoker Assessment & Plan Assessment & Plan narrative: 1. [employer]/Disseminated Zoster, present on admission and active. 2. Small right frontal subarachnoid hemorrhage, new and active. PLAN: -completed acyclovir 02/06. This is much improved today after being off from the acyclovir infusions that were t.i.d. for 14 days. -She was not stable enough to be discharged until the symptoms improve. -repeat [employer] imaging 02/05 was stable. There is no specific plan for repeat imaging at this point. We will follow her clinical course. ALEXI: Likely 02/08 of her symptoms improve. Time-Based Coding :: [TOTAL MINUTES] spent with patient and on the chart (including review of chart, obtaining history, exam, reviewing outside data, placing orders, documenting exam and treatment plan, and counseling patient) on [DATE]. Quality VTE Deep Vein Thrombosis/Pulmonary Embolism Present on Admission: No
[2024-02-08 08:40] VITALS: BP 98/60; PULSE 78; RESP 19; TEMP 36.4; O2SAT 98
[2024-02-08] MEDS: polyethylene glycoL 3350 17 GM POWD.PACK PO (09:41)
[2024-02-08] MEDS: BUTALB/APAP/CAFFEINE 50/325/40 TABLET 1 EACH PO (09:41)
[2024-02-08 10:18] LABS: Add Manual Diff / Slide Review NO; Basophils Absolute Auto 100 /uL (0-100); Basophils Percent Auto 1.2 % (0-2); Eosinophils Absolute Auto 100 /uL (0-450); Eosinophils Percent Auto 1.7 % (2-4); Lymphocytes Absolute Auto 1500 /uL (1100-4500); Lymphocytes Percent Auto 30.7 % (25-40); Mean Corpuscular HGB Conc 34.3 % (30-36); Mean Corpuscular Hemoglobin 30.3 PG (26-34); Mean Corpuscular Volume 88.2 fL (80-100); Monocytes Absolute Auto 400 /uL (0-900); Monocytes Percent Auto 7.7 % (3-14); Neutrophils Absolute Auto 2900 /uL (1500-7000); Neutrophils Percent Auto 58.7 % (50-75); Platelet Count 308 X10^3/uL (150-400); Red Cell Distribution Width 12.9 % (11.6-14.8); White Blood Cell Count 4.9 X10^3/uL (4.5-11.0)
[2024-02-08 10:33] LABS: Alanine Aminotransferase 68 IU/L (<35); Albumin 4.2 g/dL (3.5-5.0); Albumin Globulin Ratio 1.4 (1.0-2.8); Alkaline Phosphatase 52 U/L (38-126); Aspartate Aminotransferase 37 IU/L (14-36); BUN Creatinine Ratio 13.3 (6-22); Bilirubin Total 0.4 mg/dL (0.2-1.3); Blood Urea Nitrogen 8 mg/dL (7-17); Calcium 9.5 mg/dL (8.4-10.2); Carbon Dioxide 28 mmol/L (22-32); Chloride 103 mmol/L (98-107); Estimated Glomerular Filt Rate > 60 mL/min (>60); Globulin 2.9 g/dL (1.7-4.1); Glucose 90 mg/dL (70-100); HEMOLYSIS < 15 (0-50); Sodium 138 mmol/L (137-145); Total Protein 7.1 g/dL (6.3-8.2)
[2024-02-08] MEDS: IBUPROFEN 600 MG TABLET PO (13:31)
[2024-02-08] MEDS: ACETAMINOPHEN 325 MG TABLET 975 MG PO (17:53)
[2024-02-08] MEDS: ONDANSETRON 4 MG/2 ML INJ IV (18:37)
[2024-02-08 20:00] VITALS: BP 107/66; PULSE 76; RESP 18; TEMP 36.6; O2SAT 99
[2024-02-09] MEDS: PROMETHAZINE 25 MG TABLET PO ×2 (04:00→13:07)
[2024-02-09] MEDS: OXYCODONE IR 5 MG TABLET PO ×3 (04:00→13:07)
[2024-02-09] MEDS: ACETAMINOPHEN 325 MG TABLET 975 MG PO (04:01)
[2024-02-09] MEDS: BUTALB/APAP/CAFFEINE 50/325/40 TABLET 1 EACH PO ×2 (08:12→13:07)
[2024-02-09] MEDS: hydrOXYzine HCL 25 MG TABLET PO (08:12)
[2024-02-09] MEDS: polyethylene glycoL 3350 17 GM POWD.PACK PO (08:12)
--- NOTE | 2024-02-09 10:51 | PM.DS.1 ---
History of Present Illness History of Present Illness Date Patient Seen: 02/09/24 Time Patient Seen: 09:20 Date of Onset of Symptoms: 01/24/24 Chief complaint: Headache, neck px, body px, chills Narrative: 33 year old female with no reported past medical history presents with complaints of generalized body aches and headache. Per the patient's report, over the past 5 days, the patient started to have increasing generalized bodyaches and a moderate to severe headache. Yesterday, the patient also developed subjective fever and chills as well as nausea and vomiting. The patient was unable to hold much down orally due to the nausea and vomiting. The patient otherwise denies any focal weakness or vision changes. The patient also denies any chest pain, coughing, shortness of breath, diarrhea or syncope. In our ER, the patient was hypodermically stable and without sign of sepsis. Due to ongoing headache with negative CT head, our ER physician did do a lumbar puncture and CSF fluid shows elevated WBC as well as protein. Empiric IV Acyclovir, Vancomycin and Ceftriaxone given along with IVF. CSF fluid was also sent for cutltures. Discharge Providers Provider Date of admission: 01/25/24 05:03 Discharge Date: 02/09/24 Primary care physician: Doctor Sherri MD Discharge provider: Clarence Guy MD Summary Hospital Course Discharge Diagnosis: 1. [employer]/Disseminated Zoster, present on admission and active. 2. Small right frontal subarachnoid hemorrhage, new and active. Hospital Course: The patient was administered and she knew with IV vancomycin and acyclovir. Vancomycin was discontinued when her CSF analysis demonstrated positive varicella zoster PCR testing, and acyclovir continued through 02/07/2024. Status at Discharge Cognitive/behavioral status at discharge: oriented Functional status at discharge: independent ambulation Overall status at discharge: patient is progressing back to baseline Time Spent with Patient Time spent: Greater than 30 minutes Exam Vital Signs (past 8 hours): Oxygen Delivery Method Room Air Oxygen Flow Rate 0 Narrative Exam Narrative: NAD, alert and oriented. Fluent speech. Lungs are clear, normal rate and effort. Heart is regular, no murmur gallop or rub. Abdomen is soft, non distended. Extremities are free of edema. Objective Imaging *: Radiologist's impression: Chest x-ray 01/24/2024: No acute cardiopulmonary abnormality is seen. Head CT 01/24/2024: No acute intracranial pathology. Chest x-ray 01/26/2024: No radiographic evidence of acute abnormality. If symptoms persist or worsen, CT chest could be performed Brain MRI 02/05/2024: These imaging findings are most compatible with mild subacute subarachnoid hemorrhage involving the superior aspect of the right frontal lobe. Prominence of extra-axial vessels can be seen within this region. Follow-up examinations are recommended. No abnormal parenchymal enhancement can be seen. No masses are seen. Head/neck CTA 02/06/2024: Limited study demonstrating no findings of intracranial aneurysm or other significant intracranial arterial abnormality. No significant abnormality is seen within the arteries of the neck. Head CT 02/06/2024: Minimal increased density seen involving the superior aspect of the right frontal lobe. The subarachnoid hemorrhage is much better seen on the recent prior MRI. Labs 02/08/24 10:00 02/08/24 10:00 [facility] Social History household members: spouse Smoking Status: Never smoker Discharge Plan Discharge Plan Patient Disposition: Home Discharge orders & Medications Prescriptions: New promethazine 25 mg Tablet 25 mg PO Q4HR PRN (Reason: Nausea) Qty: 40 0RF hydroxyzine HCl 25 mg Tablet 25 mg PO Q6H PRN (Reason: Nausea) Qty: 40 0RF oxycodone 10 mg tablet See Rx Instructions .ROUTE .COMPLEX PRN (Reason: pain) Qty: 30 0RF Rx Instructions: 0.5 to 1 tablet up to four times daily as needed for pain acetaminophen 500 mg capsule 500 mg PO Q6H PRN (Reason: pain) Qty: 60 0RF Follow up/Referrals: Doctor Polanco MD [Primary Care Provider] - Diet/Activity/Treatments Diet: Regular Visit Report/Discharge Packet Instructions: Viral Meningitis Stand Alone Forms: Patient Portal/API, Stroke Signs & Symptoms Discharge Data Primary Care Provider: Doctor Sherri Quality VTE Deep Vein Thrombosis/Pulmonary Embolism Present on Admission: No MIPS - Admit I confirm the patient?s Advance Care Plan is present, Code status is documented, Surrogate decision maker is in patient?s record [If Yes, STOP here]: Yes MIPS - Meds 'Current medications' to include all prescriptions, [id number] products, herbals, cannabis/cannabidiol products, and vitamin/mineral/dietary (nutritional) supplements. I have utilized all available resources to obtain, update, or review the patient?s current medications. [If Yes, STOP here]: Yes MIPS - DC The patient has a history of heart transplant or Left Ventricular Assist Device (LVAD). If yes, STOP here.: No The patient has current or prior documentation of left ventricular ejection fraction (LVEF) less than or equal to 40%, or moderate or severely depressed left ventricular systolic function.: No A. The patient was prescribed or already taking an Angiotensin-Converting Enzyme (TIANA) Inhibitor, or Angiotensin Receptor An (ARB).: No B. The patient was prescribed or already taking a beta-an. [If Yes to Both A & B, STOP here]: No Patient not prescribed/taking TIANA or ARB, no reason given.: No Patient not prescribed/taking beta-an, no reason given.: No PROFEE Charge Codes Discharge inpatient/observation: [id number]
[2024-02-09 12:04] VITALS: BP 104/68; PULSE 86; RESP 18; TEMP 36.6; O2SAT 98
--- NOTE | 2024-02-09 12:52 | CM.DPNOTE ---
DC Note Patient discussed in multidisciplinary rounds; patient will be discharging home with her family today and has requested resources to help establish with a PCP. Provided PCP list and contact info for [facility]. Plan: Discharge home w/family, close outpatient follow up recommended, patient needs to call and establish new PCP. No addtl needs from this CM team identified. JW
--- NOTE | 2024-02-09 14:10 | PC.NURSE ---
Day shift: Left unit via WC at approx 1400. Pt's Mom is driving them home to [place]. Pt has the new MD scripts. Pt has all personal belongings. Paperwork signed and all questions answered. New PCP appointment made for Pt and this information was given to Pt. Medicated for headache pain per MAR just prior to discharge.
== END 2024-02-09 14:14 | disposition home or self-care (01) | DRG 75 ==
LOC: ED 01-25 05:01 → AC 01-25 05:06
PROVIDERS: Hospitalist; Internal Medicine; Admitting Provider Internal Medicine; Emergency Provider Emergency Medicine; Referring Provider Emergency Medicine; Visit Provider Internal Medicine
DX: B02.1 Zoster meningitis (principal); I60.9 Nontraumatic subarachnoid hemorrhage, unspecified; B01.0 Varicella meningitis; E86.0 Dehydration; R07.89 Other chest pain; R94.31 Abnormal electrocardiogram [ECG] [EKG]; K59.03 Drug induced constipation; T40.605A Adverse effect of unspecified narcotics, initial encounter
CPT/HCPCS: 36415; 62270; 70450; 70496; 70498; 70553; 71045; 80048; 80053; 80202; 81003; 81025; 82945; 83605; 83690; 83735; 84145; 84157; 84484; 85025; 85027; 85610; 85730; 87040; 87070; 87205; 87633; 87798; 89051; 93005; 96361; 96365; 96367; 96375; 99284; 99285; A9270; J0134; J0696; J1100; J1170; J1200; J1642; J1885; J2270; J2405; J2765

== ENCOUNTER → 2024-02-14 10:55 | Outpatient (CLI) | payer OTHER, SELFPAY ==
[2024-02-09 13:42] VITALS: BMI 22.3
[2024-02-14 12:44] LABS: Alanine Aminotransferase 64 IU/L (<35); Albumin Globulin Ratio 1.4 (1.0-2.8); Alkaline Phosphatase 57 U/L (38-126); Aspartate Aminotransferase 41 IU/L (14-36); BUN Creatinine Ratio 15.1 (6-22); Bilirubin Total 0.6 mg/dL (0.2-1.3); Blood Urea Nitrogen 8 mg/dL (7-17); Carbon Dioxide 24 mmol/L (22-32); Chloride 100 mmol/L (98-107); Estimated Glomerular Filt Rate > 60 mL/min (>60); Globulin 3.5 g/dL (1.7-4.1); Glucose 125 mg/dL (70-100); HEMOLYSIS < 15 (0-50); Sodium 137 mmol/L (137-145); Total Protein 8.5 g/dL (6.3-8.2)
[2024-02-14 12:46] LABS: Rheumatoid Factor < 8.6 IU/mL (<12.0)
[2024-02-15 16:27] LABS: HIV 1 & 2 Ab/Ag 4th Gen Combo NEGATIVE (NEGATIVE)
== END ==
LOC: LAB 10:57
PROVIDERS: PCP Family Medicine; Referring Provider Family Medicine; Visit Provider Family Medicine
DX: Z86.61 Personal history of infections of the central nervous system (principal); Z86.19 Personal history of other infectious and parasitic diseases; Z86.79 Personal history of other diseases of the circulatory system
CPT/HCPCS: 36415; 80053; 85598; 85613; 86038; 86430; 87389

== ENCOUNTER → 2024-03-02 13:39 | Outpatient (CLI) | payer OTHER, SELFPAY ==
[2024-02-09 13:42] VITALS: BMI 22.3
--- NOTE | 2024-03-02 13:41 | DI.MRI.S_ITS ---
PROCEDURE: MR HEAD/BRAIN WO/W CON INDICATIONS: FU meningitis herpes zoster / headache TECHNIQUE: Noncontrast axial T1 spin echo, axial T2 fast spin echo, sagittal and axial FLAIR, coronal T2 fast spin echo, axial gradient echo, axial diffusion and ADC through the brain. After the administration of contrast, axial and coronal and sagittal 3D VIBE or T1 spin echo with fat saturation through the brain. COMPARISON: [facility], CT, CT HEAD/BRAIN WO CON, 02/06/2024, 14:15. [facility], CT, CT HEAD/BRAIN WO CON, 01/24/2024, 23:52. [facility], MR, MR HEAD/BRAIN WO/W CON, 02/05/2024, 15:32. FINDINGS: CSF Spaces: Basal cisterns are patent. No extra-axial fluid collections. Ventricles are normal in size and shape. Brain: No intracranial masses or hemorrhage. Lemons/white matter interface is normal. Brainstem appears normal. Diffusion-weighted sequence is unremarkable without evidence of acute infarct. Normal intravascular flow voids are present. Previously noted sulcal hyperintensity in the right frontal lobe has essentially resolved. Minimal residual susceptibility. No abnormal enhancement. Multifocal nonspecific hyperintensity in the frontal white matter remains unchanged Skull and face: Calvarial marrow is normal in signal. Orbits appear normal. Sinuses: Sinuses and mastoids appear clear. IMPRESSION: No acute findings. No evidence of meningeal enhancement abscess. Right frontal sulcal hyperintensity has resolved. Minimal old blood products noted in the right frontal sulci consistent with sequelae of subarachnoid hemorrhage. Nonspecific white matter bifrontal hyperintensities. Differential possibilities include early chronic ischemic change, migrainous vasculopathy, small vessel vasculitis and sequela of prior trauma or infectious/inflammatory disease. Approved by: Doug Harman M.D. on 03/02/2024 at 14:39
== END ==
PROVIDERS: PCP Family Medicine; Referring Provider Family Medicine; Visit Provider Family Medicine
DX: Z09 Encounter for follow-up examination after completed treatment for conditions other than malignant neoplasm (principal); Z86.61 Personal history of infections of the central nervous system; Z86.19 Personal history of other infectious and parasitic diseases
CPT/HCPCS: 70553; A9579

== ENCOUNTER → 2024-06-06 08:45 | Outpatient (CLI) | payer OTHER, SELFPAY ==
[2024-02-09 13:42] VITALS: BMI 22.3
[2024-06-06 09:52] LABS: Erythrocyte Sedimentation Rate 6 MM/HR (0-20)
[2024-06-06 09:56] LABS: HEMOLYSIS < 15 (0-50); Hemoglobin A1C% w Est Avg Glu 4.9 % (4.0-6.0); Iron 71 ug/dL (37-170)
[2024-06-06 10:06] LABS: Alanine Aminotransferase 17 IU/L (<35); Albumin 4.9 g/dL (3.5-5.0); Albumin Globulin Ratio 1.8 (1.0-2.8); Alkaline Phosphatase 61 U/L (38-126); Aspartate Aminotransferase 24 IU/L (14-36); BUN Creatinine Ratio 16.1 (6-22); Bilirubin Total 0.7 mg/dL (0.2-1.3); Blood Urea Nitrogen 10 mg/dL (7-17); C-Reactive Protein Quant < 0.5 mg/dL (<1.0); Calcium 9.6 mg/dL (8.4-10.2); Carbon Dioxide 24 mmol/L (22-32); Chloride 106 mmol/L (98-107); Cholesterol 213 mg/dL (140-199); Estimated Glomerular Filt Rate > 60 mL/min (>60); Globulin 2.8 g/dL (1.7-4.1); Glucose 93 mg/dL (70-100); HDL Cholesterol 78 mg/dL (40-60); HEMOLYSIS < 15 (0-50); LDL Cholesterol Calculated 121 mg/dL (<100); Lactate Dehydrogenase 156 U/L (120-246); Potassium 4.6 mmol/L (3.4-5.1); Sodium 138 mmol/L (137-145); Total Protein 7.7 g/dL (6.3-8.2); Triglycerides 69 mg/dL (35-150)
[2024-06-06 10:13] LABS: Percent Iron Saturation 20 % (15-50); Total Iron Binding Capacity 351 ug/dL (265-497); Transferrin 320 mg/dL (206-381)
[2024-06-06 10:20] LABS: Vitamin D 25 Hydroxy (D3) 41.4 ng/mL (30.0-100.0)
[2024-06-06 10:29] LABS: TSH w/ Reflex to FT4 2.38 uIU/mL (0.47-4.68)
[2024-06-06 10:48] LABS: Vitamin B12 Reflex MMA if <400 743 pg/mL (239-931)
[2024-06-08 15:10] LABS: Vitamin B1 131.6 nmol/L (66.5-200.0)
[2024-06-09 14:07] LABS: Acetylcholine Receptor Bind AB <0.03 nmol/L (0.00-0.24)
[2024-06-11 23:10] LABS: CK-BB 0 % (0); CK-MB 0 % (0-3); CK-MM 67 % (97-100); Macro Type 1 33 % (Not Observed); Macro Type 2 0 % (Not Observed)
== END ==
PROVIDERS: PCP Family Medicine; Referring Provider Family Medicine; Visit Provider Family Medicine
DX: R51.9 Headache, unspecified (principal); G89.29 Other chronic pain; R53.83 Other fatigue; Z86.19 Personal history of other infectious and parasitic diseases; H93.19 Tinnitus, unspecified ear; G25.81 Restless legs syndrome; R74.01 Elevation of levels of liver transaminase levels; M62.89 Other specified disorders of muscle; M62.81 Muscle weakness (generalized); Z13.220 Encounter for screening for lipoid disorders; Z86.61 Personal history of infections of the central nervous system; Z86.79 Personal history of other diseases of the circulatory system; H53.149 Visual discomfort, unspecified
CPT/HCPCS: 36415; 80053; 80061; 82306; 82550; 82552; 82607; 83036; 83519; 83540; 83550; 83615; 84425; 84443; 85651; 86140